=== PATIENT | male | born 1970 | race Caucasian/White ===

== ENCOUNTER → 2017-05-26 13:47 | Outpatient (CLI) | payer BC, SELFPAY | PROVIDERS: Family Provider Family Medicine; PCP Family Medicine; Visit Provider Family Medicine | DX: Z71.3 Dietary counseling and surveillance (principal); E11.9 Type 2 diabetes mellitus without complications | CPT/HCPCS: 97802; G0108 ==

== ENCOUNTER → 2019-05-17 14:41 | Outpatient (CLI) | payer BC, SELFPAY ==
--- NOTE | 2019-05-17 15:01 | XR_ITS ---
PROCEDURE: XR FOOT WT BEARING LT 3V CLINICAL INDICATION: pain COMPARISON: No exams were available for comparison FINDINGS: No fracture or dislocation. No lytic or blastic change. There is normal mineralization. The joint spaces are well-preserved. No significant degenerative/arthritic changes. No erosive changes evident. Other findings:Borderline pes planus IMPRESSION: Borderline pes planus otherwise negative Dictated by: Ming Davenport MD 05/17/2019 16:56 Electronically signed by Ming Davenport MD in [place] 05/17/2019 16:56
--- NOTE | 2019-05-17 15:01 | XR_ITS ---
PROCEDURE: XR FOOT WT BEARING RT 3V CLINICAL INDICATION: pain COMPARISON: No exams were available for comparison FINDINGS: No fracture or dislocation. No lytic or blastic change. There is normal mineralization. There are degenerative changes at the ankle joint with bony hypertrophy and decrease in the joint space at the anterior tibiotalar joint. There is mild pes planus. Other findings:None. IMPRESSION: Mild pes planus with degenerative changes at the ankle joint Dictated by: Ming Davenport MD 05/17/2019 16:55 Electronically signed by Ming Davenport MD in [place] 05/17/2019 16:55
== END ==
PROVIDERS: PCP Family Medicine; Referring Provider Podiatrist; Visit Provider Podiatrist
DX: M79.672 Pain in left foot (principal); M79.671 Pain in right foot
CPT/HCPCS: 73630

== ENCOUNTER → 2019-08-09 15:17 | Outpatient (CLI) | payer BC, SELFPAY ==
--- NOTE | 2019-08-09 15:25 | US_ITS ---
APPROVED REPORT Exam Type: Lower Extremity Segmental Pressures Blue Line Hanger: Swpana Ragsdale RDCS Indications Rest Pain: Numbness/Tingling Risk Factors Diabetes Pressures/Indices Right Indices Left Indices Brachial 130.00 mmHg Brachial 116.00 mmHg Low Thigh 137.00 mmHg 1.05 Low Thigh 133.00 mmHg 1.02 Calf 161.00 mmHg 1.24 Calf 147.00 mmHg 1.13 Ankle(PT) 167.00 mmHg 1.28 Ankle(PT) 152.00 mmHg 1.17 Ankle(DP) 166.00 mmHg 1.28 Ankle(DP) 151.00 mmHg 1.16 Digit 129.00 mmHg 0.99 Digit 129.00 mmHg 0.99 Findings R ANNA 1.3 L ANNA 1.2 R TBI 1.0 L TBI 1.0 NORMAL PULSES AND WAVEFORMS Conclusion Normal appearing resting noninvasive lower extremity arterial study. Electronically signed by : Ming Davenport MD 08/09/2019 18:27:44
== END ==
PROVIDERS: PCP Family Medicine; Visit Provider Nurse Practitioner
DX: R09.89 Other specified symptoms and signs involving the circulatory and respiratory systems (principal); R20.8 Other disturbances of skin sensation; R68.89 Other general symptoms and signs
CPT/HCPCS: 93923

== ENCOUNTER 2019-08-14 16:00 | Outpatient (RCR) | payer BC, SELFPAY ==
--- NOTE | 2019-06-11 09:51 | HMH.PTOPEV ---
PT Outpatient Evaluation Rehab PT Outpatient Evaluation Start: 06/11/19 08:07 Freq: Status: Active Protocol: Document 06/11/19 08:08 ANAHI (Rec: 06/11/19 09:50 ANAHI [id number]) Electronically Signed By Jacob Zheng, PT 06/11/19 08:08 Outpatient Therapy Subjective History Subjective History Pt reports h/o chronic R plantar fasciitis beginning in . Pt reports extreme R foot/heel pain with prolonged standing while he was working at [employer] (off until d/t pandemic). Pt reports injection in , 'didn't help at all', however, reports injections in R heel w/Dr. Bales (3wks ago , and last ) have ' helped a lot, however, I'm not sure how its gonna to do once I have to go back to work'. Chief Complaint Pain,Stiff Symptom Type Ache,Sharp,Dull Symptoms Relieved By Rest/Positioning,OTC Meds, Prescription Meds Symptoms Aggravated By Standing,Walking Prior Functional Limitations Standing,Walking Current Functional Limitations Standing,Walking Symptom Description Constant but Variable Level of pain today (0-10) 3 Pain scale - at its best (0-10) 2 Pain scale - at its worst (0-10) 8 Ankle/Foot Eval Gait Observation General Gait Pattern Observation Antalgic Gait,Decrease Weight Bear (R) Palpation Tenderness right Ankle/Foot Palpation Findings Tenderness Ankle/Foot Palpation Overall Comment 2-3/4 medial calcaneal PF insertion ROM Ankle/Foot Dorsiflexion w/Knee Extended 0-10 Active Range Motion (degrees) Ankle/Foot Plantar Flexion Active Range 0-50 of Motion (degrees) Ankle/Foot Eversion Active Range of 0-15 Motion (degrees) Ankle/Foot Inversion Active Range of 0-35 Motion (degrees) MMT Ankle Dorsiflexion Strength Grade 4 Good Ankle Plantarflexion Strength Grade 4 Good Foot Eversion Strength Grade 4 Good Foot Inversion Strength Grade 4 Good Outpatient Therapy Assessment Impairments Problems/Impairmments Palpation Tenderness,Impaired Range of Motion,Impaired Strength,Impaired Gait Pattern ,Impaired Walking,Impaired Standing,Impaired Work Activities,Subjective C/O Pain
--- NOTE | 2019-07-24 15:51 | HMH.RHREAS ---
Rehab Reassessment Rehab OP Re-assessment Start: 07/24/19 15:45 Freq: Status: Active Protocol: Document 07/24/19 15:45 ANAHI (Rec: 07/24/19 15:51 ANAHI [id number]) Electronically Signed By Jacob Zheng, PT 07/24/19 15:45 Rehab Re-assessment Subjective Subjective PT REPORTS 0-2/10 R LE/FOOT PAIN ON VAS W/ACTIVITY, AND FEELS 80-85% BETTER OVERALL SINCE I EVAL Objective Objective Notes AROM: L ANKLE DF 0-12, PF 0-50 , INV 0-40, EVR 0-20 MMT: L ANKLE DF 5/5, PF 5/5, INV 4-4+/5, EVR 4/5 TTP: COMMON PERONEAL INSERTION 1-2/4 Assessment Progress Assessment Progressing as Expected Assessment Notes PT W/MARKED IMPROVEMENT OVERALL FOLLOWING TREATMENT OF PERONEAL NN IMPINGEMENT Patient goals met STG'S 09/03 LTG'S 06/05 Goals Not Met LTG'S 06/05 Plan Plan PT TO CONT. W/SKILLED P.T. TO MAKE FURTHER IMPROVEMENTS IN TTP, AROM, AND STRENGTH TO ALLOW FOR OPTIMAL FUNCTION Frequency of Therapy 2-3X/WK Duration of therapy 3-4 WEEKS Time and Billing Re-Eval Time 15 Re-Eval Billing Units 1 PHYSICIAN CERTIFICATION: I certify the specified therapy services for Douglas Harrison are required, authorized, and reviewed every 30 days.
== END 2019-08-14 16:05 | disposition home or self-care (01) ==
LOC: PT 16:00
PROVIDERS: PCP Family Medicine; Visit Provider Podiatrist
DX: M72.2 Plantar fascial fibromatosis (principal)
CPT/HCPCS: 20560; 97010; 97014; 97033; 97035; 97110; 97140; 97163; 97164; G0283

== ENCOUNTER → 2019-10-04 16:53 | Outpatient (CLI) | payer BC, SELFPAY ==
[2019-10-04 18:02] LABS: Erythrocyte Sedimentation Rate 15 mm/hr (0-15)
[2019-10-04 20:19] LABS: Chloride 101 mmol/L (98-107); Sodium 139 mmol/L (136-145)
[2019-10-04 20:20] LABS: Potassium 4.8 mmoL/L (3.5-5.1)
[2019-10-04 20:22] LABS: Alanine Aminotransferase 38 U/L (12-78); Albumin Level 4.4 g/dl (3.5-5.0); Albumin/Globulin Ratio 1.7 (1.1-1.8); Alkaline Phosphatase 91 U/L (38-126); Anion Gap 13.8 mEq/L (5-15); Aspartate Amino Transferase 27 U/L (17-59); Bilirubin,Total 0.5 mg/dl (0.2-1.3); Blood Urea Nitrogen 23 mg/dl (9-20); Carbon Dioxide 29 mmol/L (22.0-30.0); Cholesterol 222 mg/dl (140-200); Estimated Glomerular Filt Rate 71 ml/min (>60); GFR (African American) 86 ML/MIN (>60); Globulin 2.6 g/dL (1.3-3.2); Triglycerides 149 mg/dl (30-150); VLDL Cholesterol 30 mg/dL (0-40)
[2019-10-04 20:23] LABS: Calcium 9.5 mg/dl (8.4-10.2); Chol/HDL Ratio 7.2 (1-3.5); Glucose 124 mg/dl (74-100); HDL Cholesterol 31 mg/dl (40-60)
[2019-10-04 20:26] LABS: C-Reactive Protein 1.7 mg/L (0-4)
[2019-10-04 20:52] LABS: Thyroid Stimulating Hormone 1.81 uIU/mL (0.465-4.68)
[2019-10-04 22:40] LABS: Creatinine,Urine Random 182 mg/dL (Not Estab.)
[2019-10-06 13:06] LABS: Folate 6.4 ng/mL (>3.0); Vitamin B12 405 pg/mL (232-1245)
[2019-10-09 09:36] LABS: 1,25 Dihydroxy Vitamin D 47 pg/mL (.); 1,25-Dihydroxy, Vitamin D-2 <10 pg/mL (.); 1,25-Dihydroxy, Vitamin D-3 46 pg/mL (.)
== END ==
PROVIDERS: PCP Family Medicine; Visit Provider Podiatrist
DX: M79.672 Pain in left foot (principal); R20.0 Anesthesia of skin; R20.2 Paresthesia of skin
CPT/HCPCS: 36415; 80053; 80061; 82043; 82570; 82607; 82652; 82746; 83036; 84443; 85651; 86140

== ENCOUNTER → 2020-02-11 09:47 | Outpatient (CLI) | payer BC, SELFPAY ==
--- NOTE | 2020-02-11 09:49 | FL_ITS ---
PROCEDURE: FL UPPER GI SMALL BOWEL CLINICAL INDICATION: GASTROESOPHAGEAL REFLUX DISEAS W/ ESOPHAGITIS COMPARISON: No exams were available for comparison TECHNIQUE: FLUOROSCOPY TIME : Fluoroscopy time: 2 minutes and 15 seconds FINDINGS: The esophagus, stomach, and duodenum have an unremarkable appearance.There is a small sliding hiatal hernia. No ulcer or mass evident. No mucosal abnormalities apparent. There is normal peristalsis. The duodenal C-loop is nondisplaced. A administrative support associate exam for the small-bowel series is unremarkable. The small bowel has an unremarkable appearance. No obstruction mass or other significant anomaly. Terminal ileum has an unremarkable appearance. IMPRESSION: Small sliding hiatal hernia otherwise negative upper GI with small-bowel follow-through Dictated by: Ming Davenport MD 02/11/2020 16:41 Ming Davenport MD in [place] 02/11/2020 16:41
== END ==
PROVIDERS: PCP Family Medicine; Visit Provider Physician Assistant
DX: K21.00 Gastro-esophageal reflux disease with esophagitis, without bleeding (principal)
CPT/HCPCS: 74246; 74248

== ENCOUNTER → 2020-08-27 14:46 | Outpatient (CLI) | payer BC, SELFPAY ==
[2020-08-27 14:51] LABS: Adenovirus F 40/41, stool Not Detected (NotDetected); Astrovirus Not Detected (NotDetected); Campylobacter Not Detected (NotDetected); Clostridium Difficile A/B, PCR Not Detected (NotDetected); Cryptosporidium Not Detected (NotDetected); Cyclospora Cayetanesis Not Detected (NotDetected); Entamoeba histolytica Not Detected (NotDetected); Enteroaggregative E coli Not Detected (NotDetected); Enteropathogenic E coli Not Detected (NotDetected); Enterotoxigenic E coli Not Detected (NotDetected); Giardia lamblia Not Detected (NotDetected); Norovirus Not Detected (NotDetected); Plesimonas Shigalloides, PCR Not Detected (NotDetected); Rotavirus A Not Detected (NotDetected); Salmonella, PCR Not Detected (NotDetected); Sapovirus Not Detected (NotDetected); Shiga-like toxin E coli Not Detected (NotDetected); Shigella Enterovasive E coli Not Detected (NotDetected); Vibrio Cholerae Not Detected (NotDetected); Vibrio, PCR Not Detected (NotDetected); Yersinia Entercolitica, PCR Not Detected (NotDetected)
== END ==
PROVIDERS: Visit Provider Family Medicine
DX: K58.0 Irritable bowel syndrome with diarrhea (principal)
CPT/HCPCS: 87507

== ENCOUNTER → 2020-11-24 09:45 | Outpatient (CLI) | payer BC, SELFPAY ==
--- NOTE | 2020-11-24 09:50 | NM_ITS ---
PROCEDURE: NM GASTRIC EMPTYING STUDY CLINICAL INDICATION: FECAL URGENCY, DIARRHEA, BLOATING SYMPTOMS COMPARISON: No exams were available for comparison TECHNIQUE: Dose 0.55 mCi technetium sulfur colloid with radial labeled meal FINDINGS: The 1/2 emptying time is 56 minutes within normal limits. 6.44 percent of the gastric contents was retained 4 hours. Images submitted shows no evidence of GE reflux. IMPRESSION: Normal gastric emptying Dictated by: Ming Davenport MD 11/24/2020 15:02 Ming Davenport MD in [place] 11/24/2020 15:02
== END ==
PROVIDERS: PCP Family Medicine; Visit Provider Nurse Practitioner Family
DX: R19.7 Diarrhea, unspecified (principal); R14.0 Abdominal distension (gaseous); R15.2 Fecal urgency; R11.2 Nausea with vomiting, unspecified
CPT/HCPCS: 78264; A9541

== ENCOUNTER → 2021-02-24 11:57 | Outpatient (CLI) | payer BC, SELFPAY ==
[2021-02-24 13:40] LABS: Chloride 101 mmol/L (98-107)
[2021-02-24 13:41] LABS: Potassium 4.8 mmoL/L (3.5-5.1); Sodium 138 mmol/L (136-145)
[2021-02-24 13:43] LABS: Alanine Aminotransferase 38 U/L (12-78); Alkaline Phosphatase 111 U/L (38-126); Aspartate Amino Transferase 27 U/L (17-59); Bilirubin,Total 0.7 mg/dl (0.2-1.3); Blood Urea Nitrogen 18 mg/dl (9-20); Estimated Glomerular Filt Rate 89 ml/min (>60); GFR (African American) 108 ML/MIN (>60)
[2021-02-24 13:44] LABS: Albumin Level 4.4 g/dl (3.5-5.0); Albumin/Globulin Ratio 1.6 (1.1-1.8); Anion Gap 14.8 mEq/L (5-15); Calcium 9.2 mg/dl (8.4-10.2); Carbon Dioxide 27 mmol/L (22.0-30.0); Chol/HDL Ratio 7.7 (1-3.5); Cholesterol 185 mg/dl (140-200); Globulin 2.7 g/dL (1.3-3.2); Glucose 296 mg/dl (74-100); HDL Cholesterol 24 mg/dl (40-60); Total Protein,Serum 7.1 g/dl (6.3-8.2); Triglycerides 283 mg/dl (30-150); VLDL Cholesterol 57 mg/dL (0-40)
[2021-02-24 13:55] LABS: Direct LDL Cholesterol 107.51 mg/dL (100-129)
[2021-02-24 14:15] LABS: Hemoglobin A1C 9.3 % (4.0-6.0)
== END ==
PROVIDERS: Visit Provider Family Medicine
DX: E11.9 Type 2 diabetes mellitus without complications (principal); E78.5 Hyperlipidemia, unspecified; Z12.5 Encounter for screening for malignant neoplasm of prostate
CPT/HCPCS: 36415; 80053; 80061; 83036

== ENCOUNTER 2021-05-12 17:42 | Emergency (ER) | payer BC, SELFPAY ==
[2021-05-12] VITALS (11 sets, daily range): BP systolic 114–142; BP diastolic 68–93; PULSE 90–118; RESP 7–18; TEMP 36.7; O2SAT 95–99; BMI 27.6
--- NOTE | 2021-05-12 17:41 | ECG_ITS ---
APPROVED REPORT Exam: Resting ECG HR:121 bpm ECG Measurements Heart Rate 121 AXES OR 168 P 151 QRSd 89 QRS 73 QT 316 T 48 QTc 388 Conclusion SINUS TACHYCARDIA ABNORMAL RHYTHM ECG UNCONFIRMED REPORT Electronically signed by : Eduardo Palafox MD 05/13/2021 07:41:20
--- NOTE | 2021-05-12 18:33 | XR_ITS ---
PROCEDURE INFORMATION: Exam: XR Chest Exam date and time: 05/12/2021 6:33 PM Age: 51 years old Clinical indication: Pain; Chest pressure; Additional info: Cp TECHNIQUE: Imaging protocol: XR of the chest. Views: 1 view. COMPARISON: NM GASTRIC EMPTYING STUDY 11/24/2020 10:08 AM FINDINGS: Lungs: Unremarkable. No consolidation. Pleural spaces: Unremarkable. No pleural effusion. No pneumothorax. Heart/Mediastinum: Unremarkable. No cardiomegaly. Bones/joints: Unremarkable. IMPRESSION: No acute findings.
--- NOTE | 2021-05-12 18:33 | HMH.EDCP ---
ED Disposition Condition on Discharge: Good - Critical Care Critical Care Time: No <Preston Riley - Last Filed: 05/12/21 19:48> <Douglas Estrella - Last Filed: 05/12/21 22:17> Clinical Impression: Chest pressure Chest pain Qualifiers: Chest pain type: precordial pain Qualified Code(s): R07.2 - Precordial pain Disposition: Home, Self-Care Instructions: DI for Chest Pain Additional Instructions: please see card in am Referrals: Parth Allen MD [Primary Care Provider] - Attestation: On 05/12/21, the high probability of a clinically significant, sudden or life threatening deterioration of the following system(s) required my full and direct attention, intervention and personal management. The time I documented below is in addition to time spent performing reported procedures but includes the following listed in this critical care notation. Medical Decision Making - Medical Records Medical records reviewed: Yes: I reviewed the patient's medical records. - Hemant Inquiry Pt receiving controlled substance: No - Lab Data Result diagrams: 05/12/21 17:43 05/12/21 17:43 <RosemaryJohnston - Last Filed: 05/12/21 19:48> - Lab Data Lab results reviewed: Yes: I reviewed the patient's lab results. Result diagrams: 05/12/21 17:43 05/12/21 17:43 - Radiology Data #1 Image(s): Chest Image Reviewed: Yes I have reviewed radiologist's interpretation Preliminary Findings: Normal/NAD <Douglas Estrella - Last Filed: 05/12/21 22:17> Vital Signs: 05/12/21 17:45 05/12/21 18:30 05/12/21 19:00 Temperature 98.1 F Temperature Source Oral Pulse Rate 112 H 102 H Pulse Rate [Left Radial] 118 H Respiratory Rate 7 L 16 Blood Pressure 126/89 142/68 H Blood Pressure [Right Arm] 142/93 H Blood Pressure Mean 96 96 Blood Pressure Mean [Right Arm] 109 02 Sat by Pulse Oximetry 99 96 05/12/21 19:30 05/12/21 20:00 05/12/21 20:30 Temperature Temperature Source Pulse Rate 111 H 102 H 103 H Pulse Rate [Left Radial] Respiratory Rate 18 Blood Pressure 122/89 122/89 121/87 Blood Pressure [Right Arm] Blood Pressure Mean 94 97 96 Blood Pressure Mean [Right Arm] 02 Sat by Pulse Oximetry 96 05/12/21 20:51 Temperature Temperature Source Pulse Rate 108 H Pulse Rate [Left Radial] Respiratory Rate Blood Pressure 114/88 Blood Pressure [Right Arm] Blood Pressure Mean 95 Blood Pressure Mean [Right Arm] 02 Sat by Pulse Oximetry 96 - Lab Data Lab Results 05/12/21 17:43: WBC 10.1, RBC 5.11, Hgb 15.8, Hct 49.0, MCV 95.8 H, MCH 31.0, MCHC 32.3, RDW 13.1, Plt Count 389, MPV 9.0, Neut % (Auto) 76.0, Lymph % (Auto) 16.9, Hand % (Auto) 4.8, Eos % (Auto) 0.7, Baso % (Auto) 1.7, Neut # (Auto) 7.7, Lymph # (Auto) 1.7, Hand # (Auto) 0.5, Eos # (Auto) 0.1, Baso # (Auto) 0.2 05/12/21 17:43: D-Dimer 0.50 05/12/21 17:43: Sodium 138, Potassium 4.2, Chloride 101, Carbon Dioxide 28, Anion Gap 13.2, BUN 20, Creatinine 1.10, Estimated GFR 71, Est GFR ( Amer) 85, Glucose 368 H, Calcium 9.0, Total Bilirubin 0.9, AST 28, ALT 29, Alkaline Phosphatase 112, Troponin I < 0.01, Total Protein 7.4, Albumin 4.4, Globulin 3.0, Albumin/Globulin Ratio 1.5 05/12/21 20:45: Troponin I < 0.01 Orders (Tests/Meds): ED MEDICATIONS Discontinued Medications Generic Name Dose Route Start Last Admin Trade Name Freq PRN Reason Stop Dose Admin Aspirin 324 mg 05/12/21 18:32 05/12/21 19:02 Aspirin 81mg Chewable Tablet PO 05/12/21 18:33 324 mg ONCE ONE Administration ORDERS Category Date Time Status Troponin I Q3H Lab 05/13/21 00:45 Ordered - ECG Data Tracing #1 ekg by ny sinus 121, qrs narrow, no st elev (Preston Riley) Medical Decision Narrative: stable labs and exam and see card for follow up and chest pressure resolved but has risk factors and asked to see card in am (Douglas Estrella) Chest Pain HPI - General Source of Informati
[2021-05-12 18:44] LABS: Basophils # 0.2 K/mm3 (0-0.2); Basophils % 1.7 % (0.1-2.0); Eosinophils # 0.1 K/mm3 (0.0-0.4); Eosinophils % 0.7 % (0.1-12.0); Hemoglobin 15.8 g/dL (14.1-18.0); Lymphocytes # 1.7 K/mm3 (0.7-4.5); Lymphocytes % 16.9 % (10-50); Mean Corpuscular HGB Conc 32.3 g/dL (31.8-35.4); Mean Corpuscular Volume 95.8 fl (80-94); Monocytes # 0.5 K/mm3 (0.1-1.0); Monocytes % 4.8 % (1.7-9.3); Neutrophils # 7.7 K/mm3 (1.8-7.8); Platelet Count 389 K/mm3 (142-424); Red Blood Count 5.11 M/mm3 (4.60-6.20); Red Cell Distribution Width 13.1 % (11.5-17.5); White Blood Count 10.1 K/mm3 (4.8-10.8)
[2021-05-12 18:49] LABS: Alanine Aminotransferase 29 U/L (12-78); Albumin Level 4.4 g/dl (3.5-5.0); Albumin/Globulin Ratio 1.5 (1.1-1.8); Alkaline Phosphatase 112 U/L (38-126); Anion Gap 13.2 mEq/L (5-15); Aspartate Amino Transferase 28 U/L (17-59); Bilirubin,Total 0.9 mg/dl (0.2-1.3); Blood Urea Nitrogen 20 mg/dl (9-20); Carbon Dioxide 28 mmol/L (22.0-30.0); Chloride 101 mmol/L (98-107); Estimated Glomerular Filt Rate 71 ml/min (>60); GFR (African American) 85 ML/MIN (>60); Glucose 368 mg/dl (74-100); Potassium 4.2 mmoL/L (3.5-5.1); Sodium 138 mmol/L (136-145); Total Protein,Serum 7.4 g/dl (6.3-8.2)
[2021-05-12 19:06] LABS: Troponin I < 0.01 ng/ml (0.00-0.034)
--- NOTE | 2021-05-12 20:53 | PC.NURSE ---
NO ACUTE DISTRESS NOTED. LABS DRAWN. WCM. PT UPDATED WITH POC.
[2021-05-12 22:03] LABS: Troponin I < 0.01 ng/ml (0.00-0.034)
== END 2021-05-12 22:21 | disposition home or self-care (01) ==
PROVIDERS: Emergency Provider Emergency Medicine; PCP Family Medicine
DX: R07.2 Precordial pain (principal); R94.31 Abnormal electrocardiogram [ECG] [EKG]; R94.39 Abnormal result of other cardiovascular function study; I10 Essential (primary) hypertension; I20.9 Angina pectoris, unspecified; E78.5 Hyperlipidemia, unspecified; E11.9 Type 2 diabetes mellitus without complications; K21.9 Gastro-esophageal reflux disease without esophagitis; R05.9 Cough, unspecified; Z88.0 Allergy status to penicillin; Z82.49 Family history of ischemic heart disease and other diseases of the circulatory system; Z80.9 Family history of malignant neoplasm, unspecified; Z83.3 Family history of diabetes mellitus; Z82.5 Family history of asthma and other chronic lower respiratory diseases; Z83.438 Family history of other disorder of lipoprotein metabolism and other lipidemia
CPT/HCPCS: 71045; 80053; 84484; 85025; 85378; 93005; 99285

== ENCOUNTER → 2021-05-18 14:21 | Outpatient (CLI) | payer BC, SELFPAY ==
--- NOTE | 2021-05-18 14:30 | US_ITS ---
FINAL REPORT CLINICAL HISTORY: choking-- tachycardia FINDINGS: THYROID ULTRASOUND Sonographic images of the thyroid was obtained. The right lobe of the thyroid measures 4.3 x 1.9 x 1.8 cm. The left lobe of the thyroid measures 3.9 x 1.9 x 1.4 cm. The isthmus measures 4 mm. IMPRESSION: Unremarkable thyroid evaluation Reviewed, Interpreted and Dictated by Johny Berger MD Transcribed by Nahed Blake Authenticated by Johny Berger MD on 05/18/2021 04:27:[address] [facility]
[2021-05-18 15:48] LABS: Basophils # 0.1 K/mm3 (0-0.2); Eosinophils # 0.1 K/mm3 (0.0-0.4); Eosinophils % 1.3 % (0.1-12.0); Hematocrit 42.2 % (42.0-52.0); Hemoglobin 13.9 g/dL (14.1-18.0); Mean Corpuscular HGB Conc 32.8 g/dL (31.8-35.4); Mean Corpuscular Hemoglobin 31.2 pg (27.0-31.2); Mean Corpuscular Volume 95.1 fl (80-94); Mean Platelet Volume 8.7 fl (7.4-10.4); Monocytes # 0.4 K/mm3 (0.1-1.0); Monocytes % 6.1 % (1.7-9.3); Neutrophils # 4.1 K/mm3 (1.8-7.8); Neutrophils % 61.5 % (37.0-80.0); Platelet Count 305 K/mm3 (142-424); Red Blood Count 4.44 M/mm3 (4.60-6.20); Red Cell Distribution Width 12.9 % (11.5-17.5); White Blood Count 6.6 K/mm3 (4.8-10.8)
[2021-05-18 16:26] LABS: Chloride 103 mmol/L (98-107); Potassium 4.7 mmoL/L (3.5-5.1); Sodium 138 mmol/L (136-145)
[2021-05-18 16:28] LABS: Bilirubin,Unconjugated 0.2 mg/dL (0.0-1.1); Blood Urea Nitrogen 13 mg/dl (9-20); Estimated Glomerular Filt Rate 79 ml/min (>60); GFR (African American) 95 ML/MIN (>60)
[2021-05-18 16:29] LABS: Alanine Aminotransferase 24 U/L (12-78); Alkaline Phosphatase 107 U/L (38-126); Anion Gap 8.7 mEq/L (5-15); Aspartate Amino Transferase 20 U/L (17-59); Bilirubin,Direct 0.2 mg/dl (0.0-0.4); Bilirubin,Indirect 0.3 mg/dL (0.0-0.9); Bilirubin,Total 0.5 mg/dl (0.2-1.3); Calcium 8.5 mg/dl (8.4-10.2); Carbon Dioxide 31 mmol/L (22.0-30.0); Chol/HDL Ratio 5.2 (1-3.5); Cholesterol 125 mg/dl (140-200); Glucose 262 mg/dl (74-100); HDL Cholesterol 24 mg/dl (40-60); Total Protein,Serum 6.5 g/dl (6.3-8.2); Triglycerides 204 mg/dl (30-150); VLDL Cholesterol 41 mg/dL (0-40)
[2021-05-18 16:40] LABS: Direct LDL Cholesterol 74.47 mg/dL (100-129)
[2021-05-18 16:43] LABS: Free T4 (Free Thyroxine) 0.93 ng/dl (0.78-2.19)
[2021-05-18 16:58] LABS: Thyroid Stimulating Hormone 1.91 uIU/mL (0.465-4.68)
== END ==
PROVIDERS: PCP Family Medicine; Visit Provider Physician Assistant
DX: R07.2 Precordial pain (principal); R00.0 Tachycardia, unspecified; R94.31 Abnormal electrocardiogram [ECG] [EKG]; T17.308A Unspecified foreign body in larynx causing other injury, initial encounter; U07.1 COVID-19; E11.42 Type 2 diabetes mellitus with diabetic polyneuropathy; Z79.84 Long term (current) use of oral hypoglycemic drugs
CPT/HCPCS: 36415; 76536; 80048; 80061; 80076; 84439; 84443; 85025

== ENCOUNTER → 2021-05-21 06:09 | Outpatient (CLI) | payer BC, SELFPAY ==
--- NOTE | 2021-05-21 06:10 | CA_ITS ---
APPROVED REPORT EXAM: Comprehensive 2D, Doppler, and color-flow Echocardiogram Road Design Engineer: Adrienne Romero RVT Ht: 6 ft 2 in Wt: 221lbs BSA: 2.27 BP: 113/74 mmHg Indications: CP,ABN EKG,TACHYCARDIA,SOA,DM,HLD,HX COVID 05/19 2D Dimensions LVOT 2.09 cm (M/F) 1.5-2.5 LA Volume 30.90 mL LA Volume Index 13.67 mL/m2 (M/F) 16-34 M-Mode Dimensions RVDd 2.77 cm (0.9-2.6) LA Diam 4.01 cm (1.9-4.0) LVDd 4.92 cm (3.5-5.7) Ao Diam 3.14 cm (2.0-3.7) LVDs 3.17 cm (3.5-5.7) IVSd 0.54 cm (0.6-1.1) PWd 0.72 cm (0.6-1.1) EF (Teich) 64.90% FS 35.60% EDV (Teich) 113.90 mL TAPSE 1.78 (<1.7) ESV (Teich) 40.00 mL LV Diastology E Decel Time 103.00 (160-240 msec) E/A Ratio 0.6 MED E' 3.90 (< 7 cm/sec) E'/MED E' Ratio 13.38 (>14) LAT E' 10.00 (<10 cm/sec) E/LAT E' Ratio 5.22 (>14) Aortic Valve AO Peak GR. 3.50 mmHg Mitral Valve MV E Max Diaz. 52.00 (40-130 cm/s) MV A Velocity 82.00 (40-130 cm/s) E/A Ratio 0.63 MV Decel. Time 103.00 (160-240 ms) MV PHT 30.00 ms Pulmonary Valve PV Peak Velocity 75.00 (50-150 cm/s) Left Ventricle Left atrium is mildly enlarged, left ventricle is normal size, mild concentric left ventricular hypertrophy, estimated ejection fraction 55% with no regional wall motion abnormality, grade 1 diastolic dysfunction seen without tissue Doppler evidence of raise left atrial pressure. Right Ventricle Right atrium and right ventricle are normal size and contractility. Aortic Valve Aortic valve is minimally thickened and fibrosed, there is no aortic stenosis or aortic insufficiency. Mitral Valve Mitral valve grossly normal, there is trace mitral regurgitation. Tricuspid Valve Tricuspid grossly normal, there is trace tricuspid regurgitation, tricuspid regurgitation jet velocity is inadequate for calculation of the right ventricular systolic pressure. Pulmonic Valve Pulmonic valve is poorly visualized. Great Vessels Aortic root is normal size. Inferior vena cava is poorly visualized. Pericardium No significant pericardial effusion noted. Conclusion 1. Mildly enlarged left atrium, normal left ventricular size, mild concentric left ventricular hypertrophy, visually estimated ejection fraction 55% with no regional wall motion abnormality, grade 1 diastolic dysfunction seen without tissue Doppler evidence of raise left atrial pressure. 2. Trace mitral and tricuspid regurgitation. 3. No significant pericardial effusion noted. 4. Inferior vena cava is poorly visualized. Electronically signed by : Heriberto Díaz MD 05/22/2021 14:10:21
--- NOTE | 2021-05-21 06:10 | CA_ITS ---
APPROVED REPORT Exam: Exercise Treadmill Technologist: Juanita Antony, Ht: 6 ft 2 in Wt: 221 lbs BSA: 2.27 m2 HR: 107 bpm BP: 116/82 mmHg Rhythm: SINUS TACH, CANNOT R/O OLD INFERIOR-POSTERIOR CT, T WAVE ABNS IN III AVF Medical History Medical History: Hyperlipidemia Medications: Pantoprazole,,,,, Glimepiride,,,,, RoSUVASTATIN,,,,, VoRtioxetine,,,,, Allergies: PENICILLIN Cardiac Risk Factors: Hyperlipidemia, Diabetes , FHX of CAD Stress Test Details Test: Mando, Exercise stress testing was performed using a modified Mando protocol. HR Resting HR: 110 bpm Max Heart Rate (APMHR): 169.124928 bpm Max HR Achieved: 170 bpm Target HR (85% APMHR): 143.963547 bpm % of APMHR: 100.59 Recovery HR: 116 bpm BP Resting BP: 117/82 mmHg Max BP: 146/60 mmHg Recovery BP: 127.0/82.0 mmHg ECG Resting ECG: SINUS TACH, CANNOT R/O OLD INFERIOR-POSTERIOR CT, T WAVE ABNS IN III AVF Clinical Exercise duration: 09:31 min Highest Stage Achieved: Exercise capacity: 10.1 METs Stress ECG Conclusion PT EXERCISED 9:31 ON MANDO PROTOCOL, GOING INTO STAGE 4. PT HAD NO CP. OCC FUSION BEAT. NORMAL ST RESPONSE TO EXERCISE. NORMAL GXT. MYOVIEW IMAGES REPORTED SEPARATELY. Test Summary REST . . . . . . . Standing REST . . . . . . . Sitting REST 06:45 0.0 0.0 110 . 117/ 82 . . Stage 1 01:00 10.0 1.7 116 . . . . Stage 1 02:00 10.0 1.7 123 . . . . Stage 1 03:00 10.0 1.7 124 . 140/ 76 . . Stage 2 01:00 12.0 2.5 130 . . . . Stage 2 02:00 12.0 2.5 133 . . . . Stage 2 03:00 12.0 2.5 138 . 146/ 60 . . Stage 3 01:00 14.0 3.4 144 . . . . Stage 3 02:00 14.0 3.4 151 . . . . Stage 3 03:00 14.0 3.4 156 . . . . Stage 4 00:31 16.0 4.2 162 . . . Stop exercise at 09:31 RECOVERY 01:00 0.0 0.0 152 . . . . RECOVERY 02:00 0.0 0.0 138 . . . . RECOVERY 03:00 0.0 0.0 127 . 125/ 76 . . RECOVERY 04:00 0.0 0.0 121 . 129/ 84 . . RECOVERY 05:00 0.0 0.0 119 . 127/ 82 . . RECOVERY 05:17 0.0 0.0 120 . 127/ 82 . . Electronically signed by : Heriberto Díaz MD 05/22/2021 11:51:32
--- NOTE | 2021-05-21 06:10 | NM_ITS ---
APPROVED REPORT Exam: Nuclear Stress Test Indication: chest pain..short of breath..fatigue Patient Location: Outpatient Stress Tech: Juanita Antony [place] Tech:Negar Brian EMMANUELLea RT(R)(N) Ht: 6 ft 2 in Wt: 220 lbs HR: 107 bpm BP: 116/82 mmHg BSA: 2.26 m2 BMI: 28.2 History: chest pain..short of breath..fatigue Procedure: Patient exercised on Keenan protocol 9:31 minutes and sec, resting heart rate 107 bpm, resting blood pressure 116/82 mmHg, with exercise maximum heart rate achived was 166 bpm which is 98 % of the maximum predicted heart rate and blood pressure was 146/60 mmHg. Test was stopped due to soa..fatigue. Patient denied any complaint of chest pain. Patient has good exercise capacity, achieved 10.1 METs of workload on treadmill, the blood pressure response to exercise was Adequate. Electrocardiogram Resting electrocardiogram shows sinus rhythm, with exercise there is less than 1.[address] segment depression noted from the baseline EKG. The EKG portion of the exercise Myoview is negative for ischemia. Cardiac Stress and Resting SPECT Images: Cardiac Stress and Resting SPECT images were obtained using technetium 99m Myoview 31.6 mCi stress and 10.40 mCi at rest. Gated SPECT for analysis of segmental wall motion and calculation of the ejection fraction also done. Cardiac stress and rest SPECT may show reversible ischemia involving the inferior and posterior basal wall, computer derived ejection fraction is 56% with no regional wall motion abnormality, right ventricle is normal size and contractility. Conclusion: 1. The EKG portion of the exercise Myoview is negative for ischemia, patient has good exercise capacity achieved 10.1 METs of workload on treadmill, the blood pressure response to exercise was adequate, there was no exercise-induced chest discomfort. 2. Scintigraphic evidence of reversible ischemia involving the inferior and posterior basal wall, computer derived ejection fraction of 56% with no regional wall motion abnormality, right ventricle is normal size and contractility. 3 . Abnormal exercise Myoview study. Electronically signed by : Heriberto Díaz MD 05/22/2021 11:54:49
== END ==
PROVIDERS: PCP Family Medicine; Visit Provider Physician Assistant
DX: R06.00 Dyspnea, unspecified (principal); R07.2 Precordial pain; R00.0 Tachycardia, unspecified; E11.42 Type 2 diabetes mellitus with diabetic polyneuropathy; R94.31 Abnormal electrocardiogram [ECG] [EKG]
CPT/HCPCS: 78452; 93017; 93306; A9502

== ENCOUNTER → 2021-05-28 15:58 | Outpatient (CLI) | payer BC, SELFPAY | PROVIDERS: Visit Provider Physician Assistant | DX: Z01.812 Encounter for preprocedural laboratory examination (principal); Z11.52 Encounter for screening for COVID-19; R06.00 Dyspnea, unspecified; I20.8 Other forms of angina pectoris; I10 Essential (primary) hypertension; E11.42 Type 2 diabetes mellitus with diabetic polyneuropathy; R94.31 Abnormal electrocardiogram [ECG] [EKG]; R94.39 Abnormal result of other cardiovascular function study; Z79.84 Long term (current) use of oral hypoglycemic drugs | CPT/HCPCS: C9803; U0003; U0005 ==

== ENCOUNTER 2021-05-29 08:40 | Day surgery (SDC) | payer BC, SELFPAY ==
[2021-05-29] VITALS (12 sets, daily range): BP systolic 104–165; BP diastolic 66–91; PULSE 61–86; RESP 18–20; O2SAT 91–98; BMI 28.8
--- NOTE | 2021-05-29 07:03 | IR_ITS ---
APPROVED REPORT Patient Location: Outpatient PROCEDURES Left heart catheterization Left ventriculogram Selective coronary angiogram INDICATION Abnormal Myoview with inferior ischemia Informed consent was obtained prior to the procedure. COMPLICATIONS None Estimated Blood Loss: Less than 10 mls TECHNIQUE One percent lidocaine used to anesthetize the right anterior aspect of the wrist. The right radial artery was accessed via the Seldinger technique. A 6 Sur[place]amese sheath was placed in the right radial artery. 2.5 mg of verapamil, 800 mcg of nitroglycerin, 1mg Lidocaine and 5000 U Heparin were given through the arterial sheath. The papa catheter was also used to perform left heart catheterization, left ventriculogram and selective coronary angiogram. At the end of the procedure the sheath was removed good hemostasis was achieved using Traclet band, patient was transferred to the postop holding area in stable condition. 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 Patient's Myoview demonstrated inferior wall ischemia. This is likely from diaphragm attenuation. Given the lack of anterior ischemia the myocardial bridge is likely clinically providing adequate medical management is implemented. Patient should do well with beta-blockers. The goal of his treatment is to limit heart rate and prolong diastole. Beta-blockers plus or minus verapamil or diltiazem will be beneficial 2. Continue risk factor modification Electronically signed by : Skip Montague MD 05/29/2021 10:20:55
== END 2021-05-29 13:34 | disposition home or self-care (01) ==
LOC: CATHLAB 08:45
PROVIDERS: PCP Family Medicine; Visit Provider Internal Medicine
DX: I25.118 Atherosclerotic heart disease of native coronary artery with other forms of angina pectoris (principal); E11.42 Type 2 diabetes mellitus with diabetic polyneuropathy; R06.00 Dyspnea, unspecified; R94.31 Abnormal electrocardiogram [ECG] [EKG]; R94.39 Abnormal result of other cardiovascular function study; K21.9 Gastro-esophageal reflux disease without esophagitis; E78.5 Hyperlipidemia, unspecified; Z86.16 Personal history of COVID-19
CPT/HCPCS: 93458; 99152; C1725; C1760; C1769; J1644; Q9967

== ENCOUNTER → 2021-07-18 10:23 | Outpatient (CLI) | payer BC, SELFPAY ==
[2021-07-18 11:21] LABS: Hemoglobin A1C 9.9 % (4.0-6.0)
[2021-07-18 11:32] LABS: Alanine Aminotransferase 23 U/L (12-78); Albumin Level 4.1 g/dl (3.5-5.0); Albumin/Globulin Ratio 1.6 (1.1-1.8); Alkaline Phosphatase 101 U/L (38-126); Anion Gap 11.3 mEq/L (5-15); Aspartate Amino Transferase 20 U/L (17-59); Bilirubin,Total 0.4 mg/dl (0.2-1.3); Blood Urea Nitrogen 14 mg/dl (9-20); Calcium 9.1 mg/dl (8.4-10.2); Carbon Dioxide 28 mmol/L (22.0-30.0); Chloride 102 mmol/L (98-107); Chol/HDL Ratio 5.4 (1-3.5); Cholesterol 140 mg/dl (140-200); Estimated Glomerular Filt Rate 89 ml/min (>60); GFR (African American) 108 ML/MIN (>60); Globulin 2.5 g/dL (1.3-3.2); Glucose 226 mg/dl (74-100); HDL Cholesterol 26 mg/dl (40-60); Potassium 4.3 mmoL/L (3.5-5.1); Sodium 137 mmol/L (136-145); Total Protein,Serum 6.6 g/dl (6.3-8.2); Triglycerides 134 mg/dl (30-150); VLDL Cholesterol 27 mg/dL (0-40)
[2021-07-18 11:43] LABS: Direct LDL Cholesterol 82.88 mg/dL (100-129)
[2021-07-18 12:01] LABS: Prostate Specific Ag Screen 0.5 ng/ml (0.0-4.0)
== END ==
PROVIDERS: PCP Family Medicine; Visit Provider Family Medicine
DX: E11.9 Type 2 diabetes mellitus without complications (principal); E78.5 Hyperlipidemia, unspecified; Z12.5 Encounter for screening for malignant neoplasm of prostate; Z79.84 Long term (current) use of oral hypoglycemic drugs
CPT/HCPCS: 36415; 80053; 80061; 83036; G0103

== ENCOUNTER → 2022-01-30 11:17 | Outpatient (CLI) | payer BC, SELFPAY ==
[2022-01-30 11:57] LABS: Chloride 101 mmol/L (98-107); Potassium 4.1 mmoL/L (3.5-5.1); Sodium 133 mmol/L (136-145)
[2022-01-30 11:59] LABS: Blood Urea Nitrogen 13 mg/dl (9-20); Estimated Glomerular Filt Rate 79 ml/min (>60); GFR (African American) 95 ML/MIN (>60)
[2022-01-30 12:00] LABS: Alanine Aminotransferase 32 U/L (12-78); Albumin Level 4.3 g/dl (3.5-5.0); Albumin/Globulin Ratio 1.7 (1.1-1.8); Alkaline Phosphatase 146 U/L (38-126); Anion Gap 8.1 mEq/L (5-15); Aspartate Amino Transferase 27 U/L (17-59); Bilirubin,Total 0.7 mg/dl (0.2-1.3); Calcium 9.5 mg/dl (8.4-10.2); Carbon Dioxide 28 mmol/L (22.0-30.0); Chol/HDL Ratio 7.6 (1-3.5); Cholesterol 189 mg/dl (140-200); Globulin 2.5 g/dL (1.3-3.2); Glucose 303 mg/dl (74-100); HDL Cholesterol 25 mg/dl (40-60); Total Protein,Serum 6.8 g/dl (6.3-8.2); Triglycerides 298 mg/dl (30-150); VLDL Cholesterol 60 mg/dL (0-40)
[2022-01-30 12:12] LABS: Direct LDL Cholesterol 97.95 mg/dL (100-129)
[2022-01-30 12:31] LABS: Hemoglobin A1C 13.1 % (4.0-6.0)
== END ==
PROVIDERS: PCP Family Medicine; Visit Provider Family Medicine
DX: E11.9 Type 2 diabetes mellitus without complications (principal); E78.5 Hyperlipidemia, unspecified; Z79.84 Long term (current) use of oral hypoglycemic drugs
CPT/HCPCS: 36415; 80053; 80061; 81001; 82043; 83036

== ENCOUNTER → 2022-02-09 14:51 | Outpatient (CLI) | payer BC, SELFPAY ==
[2022-02-09 16:04] VITALS: BMI 29.1
== END ==
PROVIDERS: PCP Family Medicine; Visit Provider Family Medicine
DX: E11.65 Type 2 diabetes mellitus with hyperglycemia (principal); Z71.3 Dietary counseling and surveillance
CPT/HCPCS: 97802

== ENCOUNTER 2022-04-17 12:45 | Emergency (ER) | payer BC, OTHER, SELFPAY ==
[2022-04-17 12:50] VITALS: BP 113/70; PULSE 76; RESP 20; TEMP 36.8; O2SAT 97; BMI 28.8
--- NOTE | 2022-04-17 13:29 | EXP.UTC ---
Discharge Plan Disposition Patient Disposition: Home, Self-Care Condition: Good Prescriptions Prescriptions: New cephalexin [cephalexin] 500 mg tablet 500 mg PO BID 7 Days Qty: 14 0RF fluticasone propionate [Flonase Allergy Relief] 50 mcg/actuation spray,suspension 1 spray intranasal DAILY Qty: 16 0RF Rx Instructions: administer into each nostril No Action glimepiride 2 mg tablet 2 mg PO DAILY Label Comments: TAKE 1 TABLET BY MOUTH ONCE DAILY rosuvastatin 20 mg tablet 20 mg PO HS pantoprazole 40 mg tablet,delayed release (DR/EC) 40 mg PO DAILY Trintellix 20 mg tablet 20 mg PO DAILY bisoprolol fumarate 10 mg tablet 10 mg PO DAILY Qty: 90 1RF Referrals Follow up/Referrals: Parth Allen MD [Primary Care Provider] - See instructions Activity Restrictions/Add. Instructions Additional Instructions/Restrictions: Start antibiotic as soon as possible and be sure to take as ordered for full length of time even though he should start feeling better in 24-48 hours. Tylenol or Motrin as needed for pain or fever Encourage fluids, water, Gatorade, Powerade, Pedialyte if infant/toddler/child Warm compresses often helps when placed over ear Return immediately for new or worsening symptoms no noticeable improvement in 48-72 hours and in 10-14 days to ensure the ears are return to baseline. Follow-up with primary care Clinical Impressions Clinical Impression: Otitis media Instructions Patient Instructions: Middle Ear Infection Discharge ED Provider: Ryne ([facility])Yenifer [facility] HPI General Stated complaint: Sore throat LT ear pain fever Mode of Arrival: Ambulatory Source of Information: Patient Limitations: No Limitations Time Seen by Provider: 04/17/22 13:29 Description of Symptoms (Recalled from Triage Doc. by RN): PATIENT C/O LEFT EAR PAIN AND SORE THROAT SINCE THIS MORNING HEENT Symptoms (Recalled from RN notes): Yes Resp Symptoms (Recalled from RN notes): No Skin Symptoms (Recalled from RN notes): No MS Symptoms (Recalled from RN notes): No Functional Status (Recalled from RN notes): WNL History of Present Illness Provider Complaint: 51 yr old male presents for left ear pain and sore throat for 2 days Related Data Home Medications Medication Instructions Recorded Confirmed glimepiride 2 mg tablet 2 mg PO DAILY Diabetes 05/13/21 06/22/21 pantoprazole 40 mg tablet,delayed 40 mg PO DAILY GERD 05/13/21 06/22/21 release rosuvastatin 20 mg tablet 20 mg PO HS Cholesterol 05/13/21 06/22/21 vortioxetine 20 mg tablet 20 mg PO DAILY 06/22/21 06/22/21 (Trintellix) Previous Rx's Medication Instructions Recorded bisoprolol fumarate 10 mg tablet 10 mg PO DAILY heart rate #90 tabs 01/27/22 cephalexin 500 mg tablet 500 mg PO BID 7 days #14 tabs 04/17/22 fluticasone propionate 50 1 spray intranasal DAILY #16 grams 04/17/22 mcg/actuation nasal spray,suspension (Flonase Allergy Relief) Allergies Allergy/AdvReac Type Severity Reaction Status Date / Time Penicillins Allergy Intermediate I-HIVES Verified 06/22/21 14:23 Worker's Comp Is this a Worker's Comp case?: No [facility] Disclaimer: The information contained in this section may have been updated after the patient was seen, as this information can be updated by other users. 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
[2022-04-17 13:33] VITALS: BP 113/70; PULSE 76; RESP 20; TEMP 36.8; O2SAT 97
== END 2022-04-17 13:42 | disposition home or self-care (01) ==
PROVIDERS: Emergency Provider Nurse Practitioner Family; PCP Family Medicine
DX: H66.90 Otitis media, unspecified, unspecified ear (principal)
CPT/HCPCS: 99212; 99213; G0463

== ENCOUNTER → 2022-05-22 09:03 | Outpatient (CLI) | payer BC, SELFPAY ==
[2022-05-22 10:07] LABS: Alanine Aminotransferase 23 U/L (12-78); Albumin Level 4.2 g/dl (3.5-5.0); Albumin/Globulin Ratio 1.8 (1.1-1.8); Alkaline Phosphatase 83 U/L (38-126); Anion Gap 8.5 mEq/L (5-15); Aspartate Amino Transferase 23 U/L (17-59); Bilirubin,Total 0.8 mg/dl (0.2-1.3); Blood Urea Nitrogen 17 mg/dl (9-20); Calcium 8.5 mg/dl (8.4-10.2); Carbon Dioxide 31 mmol/L (22.0-30.0); Chloride 102 mmol/L (98-107); Estimated Glomerular Filt Rate 78 ml/min (>60); GFR (African American) 95 ML/MIN (>60); Globulin 2.4 g/dL (1.3-3.2); Glucose 173 mg/dl (74-100); Potassium 4.5 mmoL/L (3.5-5.1); Sodium 137 mmol/L (136-145); Total Protein,Serum 6.6 g/dl (6.3-8.2)
[2022-05-22 10:12] LABS: Hemoglobin A1C 8.1 % (4.0-6.0)
[2022-05-23 08:00] LABS: Testosterone,Total 182 ng/dL (264-916)
== END ==
PROVIDERS: PCP Family Medicine; Visit Provider Family Medicine
DX: E11.65 Type 2 diabetes mellitus with hyperglycemia (principal); R53.83 Other fatigue; E29.1 Testicular hypofunction; Z79.84 Long term (current) use of oral hypoglycemic drugs
CPT/HCPCS: 36415; 80053; 83036; 84403

== ENCOUNTER 2022-08-04 14:09 | Emergency (ER) | payer BC, OTHER, SELFPAY ==
[2022-08-04 14:09] VITALS: BP 117/74; PULSE 71; RESP 16; TEMP 36.6; O2SAT 97; BMI 28.8
--- NOTE | 2022-08-04 14:32 | EXP.UTC ---
Discharge Plan Disposition Patient Disposition: Home, Self-Care Condition: Good Prescriptions Prescriptions: New ibuprofen [ibuprofen] 600 mg tablet 600 mg PO Q6HP PRN (Reason: Mild Pain) Qty: 30 0RF No Action glimepiride 2 mg tablet 2 mg PO DAILY Label Comments: TAKE 1 TABLET BY MOUTH ONCE DAILY rosuvastatin 20 mg tablet 20 mg PO HS pantoprazole 40 mg tablet,delayed release (DR/EC) 40 mg PO DAILY Touhiwot SoloStar U-300 Insulin 300 unit/mL (1.5 mL) insulin pen 36 unit SQ DAILY Mounjaro 2.5 mg/0.5 mL pen injector 2.5 mg SQ WEEKLY Trintellix 20 mg tablet 20 mg PO DAILY bisoprolol fumarate 10 mg tablet 10 mg PO DAILY Qty: 90 1RF Referrals Follow up/Referrals: Parth Allen MD [Primary Care Provider] - See instructions Flora Bales DPM [Staff Physician] - See instructions Activity Restrictions/Add. Instructions Additional Instructions/Restrictions: Rest the extremity, Elevate the extremity as tolerated while you are resting. Take ibuprofen for pain. I sent in a prescription to your pharmacy. Follow up with Dr. Bales (podiatry). I put in a referral but you need to call her office and schedule an appointment. Follow up with your regular doctor. GO TO THE ER FOR ANY WORSENING SYMPTOMS Clinical Impressions Clinical Impression: Foot pain, left Instructions Patient Instructions: DI for Foot Pain, How to Use a Walking Boot Discharge ED Provider: Kevin Mcmahan [facility] General Stated complaint: left foot pain/swelling, no accident Time Seen by Provider: 08/04/22 14:43 History of Present Illness Provider Complaint: He c/o left foot pain for the past 2 weeks. His pain is located in the ball of his foot. It is worse when he is walking and he pushes off with his toes. He denies any known injury. Related Data Home Medications Medication Instructions Recorded Confirmed glimepiride 2 mg tablet 2 mg PO DAILY Diabetes 05/13/21 06/22/22 pantoprazole 40 mg tablet,delayed 40 mg PO DAILY GERD 05/13/21 06/22/22 release rosuvastatin 20 mg tablet 20 mg PO HS Cholesterol 05/13/21 06/22/22 vortioxetine 20 mg tablet 20 mg PO DAILY 06/22/21 06/22/22 (Trintellix) insulin glargine U-300 conc 300 36 unit SQ DAILY 06/22/22 06/22/22 unit/mL (1.5 mL) subcutaneous pen (Toujeo SoloStar U-300 Insulin) tirzepatide 2.5 mg/0.5 mL 2.5 mg SQ WEEKLY 06/22/22 06/22/22 subcutaneous pen injector (Efraínungloriaro) Previous Rx's Medication Instructions Recorded bisoprolol fumarate 10 mg tablet 10 mg PO DAILY heart rate #90 tabs 01/27/22 ibuprofen 600 mg tablet 600 mg PO Q6HP PRN Mild Pain #30 08/04/22 tabs Allergies Allergy/AdvReac Type Severity Reaction Status Date / Time Penicillins Allergy Intermediate I-HIVES Verified 06/22/22 13:20 [facility] Disclaimer: The information contained in this section may have been updated after the patient was seen, as this information can be updated by other users. Medical History Abnormal cardiovascular stress test Abnormal electrocardiography Atypical angina Diabetes mellitus, type 2 Dyspnea Hyperlipidemia Hypertension Kidney stone Myocardial bridge Social History Smoking Status: Never smoker alcohol intake: never current occupational status: employed Travel in the last 8 weeks: Inside the [place] ROS Obtained: Yes All systems reviewed & no additional complaints except as documented Constitutional Constitutional: Denies chills and Denies fever(s) Eyes Eyes: Denies eye discharge ENT Ears, Nose, Mouth, and Throat: Denies dizziness, Denies otalgia and Denies sore throat Cardiovascular Cardiovascular: Denies chest pain Respiratory Respiratory: Denies shortness of breath, Denies chest congestion, Denies cough, Denies stridor and Denies wheezing Gastrointestinal Gastrointest
--- NOTE | 2022-08-04 14:41 | XR_ITS ---
FINAL REPORT CLINICAL HISTORY: left foot pain, no known injury FINDINGS: LEFT FOOT Three views demonstrate no acute fracture or dislocation. There is evidence of old avulsion injury of the medial malleolus. The joint spaces appear normal. No acute soft tissue abnormality is seen. IMPRESSION: No acute process. Reviewed, Interpreted and Dictated by Holger Marquez MD Transcribed by Victoria Gong Authenticated and . [facility]
[2022-08-04 16:03] VITALS: BP 117/74; PULSE 71; RESP 16; TEMP 36.6; O2SAT 97
== END 2022-08-04 16:04 | disposition home or self-care (01) ==
PROVIDERS: Emergency Provider Nurse Practitioner Family; PCP Family Medicine
DX: M79.672 Pain in left foot (principal); E11.9 Type 2 diabetes mellitus without complications; E78.5 Hyperlipidemia, unspecified; I10 Essential (primary) hypertension; Z79.4 Long term (current) use of insulin
CPT/HCPCS: 73630; 99212; 99214; G0463

== ENCOUNTER → 2022-08-23 08:46 | Outpatient (CLI) | payer BC, OTHER, SELFPAY ==
--- NOTE | 2022-08-23 08:56 | XR_ITS ---
FINAL REPORT CLINICAL HISTORY: left foot pain COMPARISON: 08/04/2022 FINDINGS: LEFT FOOT: Three views of the left foot were obtained. There is no acute fracture or dislocation. The joint spaces are intact. There is no soft tissue abnormality. IMPRESSION: No acute bony abnormality. Reviewed, Interpreted and Dictated by Umair Olson III, MD Transcribed by Carola Cabrera Authenticated and [facility]
== END ==
PROVIDERS: PCP Family Medicine; Visit Provider Podiatrist
DX: M79.672 Pain in left foot (principal); M84.375A Stress fracture, left foot, initial encounter for fracture
CPT/HCPCS: 73630

== ENCOUNTER → 2022-09-20 07:44 | Outpatient (CLI) | payer BC, OTHER, SELFPAY ==
--- NOTE | 2022-09-20 07:45 | MR_ITS ---
FINAL REPORT TECHNIQUE: Multiplanar MR of the foot without gadolinium enhancement. CLINICAL HISTORY: Left foot pain. lateral sided foot pain. no injury or trauma. COMPARISON: None FINDINGS: Articular cartilage: Tiny osteochondral defect medial talar dome. Osteochondral defect lateral talar dome measuring 7 x 4 mm. Marrow signal: Marrow edema within the medial meniscus without discrete fracture line. This could be bone contusion or related to occult osteochondral defect. Minimal marrow edema posterolateral talar dome. Tendons:Visualized tendons are unremarkable Ligaments:Major ligaments intact Plantar Fascia:No evidence of tear No cystic or soft tissue mass. IMPRESSION: A few areas of marrow edema of the talus and medial meniscus probably related to underlying articular cartilage defect. No fracture or soft tissue abnormality. Reviewed, Interpreted and Dictated by Holger Marquez MD Transcribed by Carola Cabrera Authenticated and . [facility]
== END ==
PROVIDERS: PCP Family Medicine; Visit Provider Podiatrist
DX: M79.672 Pain in left foot (principal)
CPT/HCPCS: 73718

== ENCOUNTER 2022-11-16 10:00 | Outpatient (RCR) | payer BC, OTHER, SELFPAY ==
--- NOTE | 2022-10-06 18:04 | HMH.PTOPEV ---
PT Outpatient Evaluation Rehab PT Outpatient Evaluation Start: 10/06/22 15:54 Freq: Status: Active Protocol: Document 10/06/22 15:55 JONENEIL (Rec: 10/06/22 18:04 MARSHA [id number]) E-signed By Princess Kwong, PT Outpatient Therapy Subjective History Subjective History Pt is a 52 y/o male who reports gradual onset of L ankle pain in June without known trauma or injury. Pt reports he went to [facility] and saw Dr. Bales regarding the L foot/ankle pain and was initially placed in a cast for ~2 weeks then in a fx boot. Pt reports he has been off work since July taking it easy to assist with healing and has noticed improvements in pain. Pt reports he transitioned FWB in a tennis shoe on 08/22/22. Pt reports he is doing well with this but does notice increased pain when he is active. Pt reports pain is on the lateral aspect of the ankle/foot. Pt reports with increased activity he will also getting shooting pain across the top of his toes. Pt denies swelling or paresthesia. Pt reports he has a history of multiple ankle sprains and has been avoiding uneven ground due to ankle instability. Pt reports Dr. Bales mentioned an ankle brace for stability but he has not received one yet. Pt had a foot xray on 08/23/22 without significant findings and a MRI on 09/20/22 with impression of A few areas of marrow edema of the talus and medial meniscus probably related to underlying articular cartilage defect. No fracture or soft tissue abnormality. Pt reports he fell the morning of his MRI on 09/20/22 while going down the stairs and landed on the L ankle worsening pain. Pt reports he returns to Dr. Bales on 10/17. 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 Medical History: Atypical angina, Diabetes mellitus type 2, Hyperlipidemia, Hypertension, GERD, Hx of bilateral TKA, Hx of left PF release in 2000 Chief Complaint Pain,Stiff,Swelling Symptom Type Sharp,Shooting Symptoms Relieved By Rest/Positioning,Elevation Symptoms Aggravated By Physical Activity,Twisting, Walking Prior Functional Limitations None Current Functional Limitations Recreation Activity,Walking, Stairs,Balance Symptom Description Intermittent Level of pain today (0-10) 1 Pain scale - at its best (0-10) 0 Pain scale - at its worst (0-10) 8 Ankle/Foot Eval Gait Observation General Gait Pattern Observation Antalgic Gait,Decrease Weight Bear (L),Decrease Stride Lngth (L) Palpation Tenderness left Ankle/Foot Palpation Findings Tenderness Ankle/Foot Palpation Overall Comment lateral ankle and 5th met ROM Ankle/Foot Dorsiflexion w/Knee Extended 10 Active Range Motion (degrees) Ankle/Foot Plantar Flexion Active Range 35 of Motion (degrees) Ankle/Foot Eversion Active Range of 12 Motion (degrees) Ankle/Foot Inversion Active Range of 25 Motion (degrees) MMT Ankle Dorsiflexion Strength Grade 4 Good Ankle Plantarflexion Strength Grade 4 Good Foot Eversion Strength Grade 4- Good- Foot Inversion Strength Grade 4- Good- Outpatient Therapy Assessment Impairments Problems/Impairmments Palpation Tenderness,Impaired Range of Motion,Impaired Strength,Impaired Gait Pattern ,Impaired Walking,Impaired Standing,Impaired Stair Climbing,Impaired Incline Stepping,Impaired Stepping on Uneven Surface,Impaired Balance,Increased Edema, Subjective C/O Pain,Impaired Self Care/Self Management Prognosis Rehab Potential Good Clinical Impression Consistent with Diagnosis Yes Short Term Goals Number of Weeks 3 Increase Strength Yes: Improve L ankle MMT by half grade to assist with function/gait Improve Balance Yes: Tandem firm surface 30 without LOB to decrease fall risk Decrease Subjective C/O Pain Yes: Improve pain at worst to 6/10 to improve overall QOL Improve Self Care/Self Management Yes Patient to be Ind w/ HEP Yes 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 Number of Weeks 6 Increase Range of Motion Yes: Improve L ankle AROM to WNL Increase Strength Yes: Improve L ankle MMT 5/5 to assist with functional activities Increase Ability to Walk Yes: 10' with pain 4/10 or less to assist with occupation /ADLs Improve Ability to Climb Stairs Yes: 1 flight with 1 HR reciprocally to assist with home navigation Improve Balance Yes: Tandem stance foam 30 without LOB to decrease fall risk Decrease Subjective C/O Pain Yes: Improve pain at worst to 4/10 to improve overall QOL Improve Self Care/Self Management Yes Patient to be Ind w/ Advanced HEP Yes Outpatient Therapy Plan of Care Treatment Plan May Include Therapeutic Exercise Including Home Yes Exercise Program Manual Therapy Techniques Yes Neuromuscular Re-education Yes Therapeutic Activities to Return to Yes Previous Functional/Work Level Gait Training Yes ADL/Self Care Education Yes Dry Needling Yes Thermal Modalities Yes Electrical Stimulation Yes Ultrasound/Phonophoresis Yes Iontophoresis Yes Orthotics/Bracing/Splinting Yes Vasopneumatic Compression Pump Yes Massage Yes Manual Lymphatic Drainage Yes Eval/Re-Eval Yes Frequency Times per week 2 Duration Number of Weeks 4-6 Addendums This patient is a candidate for social No or vocational rehab? Patient/Guardian verbally acknowledges Yes understanding of treatment program and consents to further treatment? Patient/Guardian verbally acknowledges Yes understanding of diagnosis, prognosis and goals for treatment? G -code Required No Eval Complexity PT Charges 47184 - Moderate Complexity Shoulder/Elbow Eval Shoulder Objective Measurements Elbow Objective Measurements PHYSICIAN CERTIFICATION: I certify the specified therapy services for Douglas Harrison are required, authorized, and reviewed every 30 days.
--- NOTE | 2022-11-04 11:30 | HMH.RHREAS ---
Rehab Reassessment Rehab OP Re-assessment Start: 10/06/22 15:54 Freq: Status: Active Protocol: Document 11/04/22 11:18 MARSHA (Rec: 11/04/22 11:30 CRISTIANLea [id number]) E-signed By Princess Kwong PT Rehab Re-assessment Subjective Subjective Pt reports he feels 10% improved since starting PT. Pt reports he is still taking it easy most of the time. Pt reports intermittent lateral foot pain rated 6/10 on VAS scale at at worst. Pt reports this usually occurs when he is driving due to the positioning of his foot. 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 Objective Objective Notes L ankle TTP of 5th MTP and anterior joint line L ankle AROM: DF 10, PF 45, Inv 25, Ev 15 L ankle MMT: 4+/5 grossly in open chain Balance: tandem 30 without LOB Gait: mildly antalgic Assessment Progress Assessment Slower Than Expected Assessment Notes Pt has attended 8 PT visits consisting of aerobic exercise , ankle mobility, LE strengthening, balance/ proprioception training, trial of dry needling and modalities with good tolerance . Pt demonstrates improved ankle AROM, strength and balance this date compared to the initial evaluation. Pt continues to report 6/10 pain worse with the ankle is in a dorsiflexed position and with prolonged activity. Pt would continue to benefit from skilled PT to further improve pain severity, ankle strength, and balance/proprioception to assist with functional activity tolerance and return to PLOF. Patient goals met ST/5 Goals Not Met LTG Revised Goals n/a Plan Plan Continue initial POC Frequency of Therapy 2x/week Duration of therapy 4 more weeks Time and Billing Re-Eval Time 9 Re-Eval Billing Units 1 PHYSICIAN CERTIFICATION: I certify the specified therapy services for Douglas Harrison are required, authorized, and reviewed every 30 days.
== END 2022-11-16 11:15 | disposition home or self-care (01) ==
LOC: PT 10:00
PROVIDERS: PCP Family Medicine; Visit Provider Podiatrist
DX: M84.375A Stress fracture, left foot, initial encounter for fracture (principal); M25.372 Other instability, left ankle; S93.402A Sprain of unspecified ligament of left ankle, initial encounter
CPT/HCPCS: 20561; 97010; 97014; 97016; 97033; 97035; 97110; 97112; 97163; 97164; G0283

== ENCOUNTER 2023-04-25 16:21 | Emergency (ER) | payer BC, OTHER, SELFPAY ==
[2023-04-25 16:35] VITALS: BP 126/66; PULSE 72; RESP 18; TEMP 36.6; O2SAT 98; BMI 28.0
[2023-04-25 16:44] VITALS: BP 126/66; PULSE 72; RESP 18; TEMP 36.6; O2SAT 98
--- NOTE | 2023-04-25 16:44 | EXP.UTC ---
Discharge Plan Disposition Patient Disposition: Home, Self-Care Condition: Good Prescriptions Prescriptions: No Action glimepiride 2 mg tablet 2 mg PO DAILY Patient Comments: TAKE 1 TABLET BY MOUTH ONCE DAILY rosuvastatin 20 mg tablet 20 mg PO HS pantoprazole 40 mg tablet,delayed release (DR/EC) 40 mg PO DAILY Ludwinuhiwot SoloStar U-300 Insulin 300 unit/mL (1.5 mL) insulin pen 36 unit SQ DAILY Mounjaro 2.5 mg/0.5 mL pen injector 2.5 mg SQ WEEKLY Jardiance 25 mg tablet 25 mg PO DAILY Trintellix 20 mg tablet 20 mg PO DAILY bisoprolol fumarate 10 mg tablet 10 mg PO DAILY Qty: 90 1RF Referrals Follow up/Referrals: Parth Allen MD [Primary Care Provider] - See instructions Activity Restrictions/Add. Instructions Additional Instructions/Restrictions: *Monitor Temp, Over the counter Motrin or Tylenol as directed/as needed Tylenol every 4 hours and Motrin every 6 hours (as long as your family doctor has told you that you can take it) for fever or pain. and straight to ER if unable to lower temp less than 101.0 after medication given *Warm salt water gargles may help to soothe the throat *Throat Lozenges? *Warm fluids like tea with honey may help to soothe the throat? *Sleep elevated *Humidifier/Vaporizer Follow up IMMEDIATELY for new or worsening symptoms or no Noticeable improvement over the next 48-72 hours. 911 for difficulty breathing or swallowing You were tested for today for COVID19 your test result should be back in the next 24hours, you may check your results on the [facility] My Health Portal if your COVID or Influenza is positive then you must not work or attend school for 5 days and Quarantine if you have COVID Clinical Impressions Clinical Impression: Viral syndrome Stand Alone Forms Stand Alone Forms: Work/School Release Instructions Patient Instructions: DI for Viral Syndrome Discharge ED Provider: Pam Correa [facility] HPI General Stated complaint: sore throat, cough, runny nose Mode of Arrival: Ambulatory Source of Information: Patient Limitations: No Limitations Time Seen by Provider: 04/25/23 16:45 Description of Symptoms (Recalled from Triage Doc. by RN): PATIENT C/O RUNNY NOSE, SNEEZING, AND SCRATCHY THROAT X 2 DAYS. RECENTLY EXPOSED TO COVID HEENT Symptoms (Recalled from RN notes): Yes Resp Symptoms (Recalled from RN notes): No Skin Symptoms (Recalled from RN notes): No MS Symptoms (Recalled from RN notes): No Functional Status (Recalled from RN notes): WNL History of Present Illness Provider Complaint: Patient states that for the last couple days he has been having sneezing, cough and runny nose States that jeremy that sits with him at lunch just tested positive for COVID and he was worried he may have it too since he was having the same symptoms wanting to get tested for COVID Related Data Home Medications Medication Instructions Recorded Confirmed glimepiride 2 mg tablet 2 mg PO DAILY Diabetes 05/13/21 12/08/22 pantoprazole 40 mg tablet,delayed 40 mg PO DAILY GERD 05/13/21 12/08/22 release rosuvastatin 20 mg tablet 20 mg PO HS Cholesterol 05/13/21 12/08/22 vortioxetine 20 mg tablet 20 mg PO DAILY 06/22/21 12/08/22 (Trintellix) insulin glargine U-300 conc 300 36 unit SQ DAILY 06/22/22 12/08/22 unit/mL (1.5 mL) subcutaneous pen (Toujeo SoloStar U-300 Insulin) tirzepatide 2.5 mg/0.5 mL 2.5 mg SQ WEEKLY 06/22/22 12/08/22 subcutaneous pen injector (Mounjaro) empagliflozin 25 mg tablet 25 mg PO DAILY 11/17/22 12/08/22 (Jardiance) Previous Rx's Medication Instructions Recorded bisoprolol fumarate 10 mg tablet 10 mg PO DAILY heart rate #90 tabs 01/27/22 Allergies Allergy/AdvReac Type Severity Reaction Status Date / Time Penicillins Allergy Intermediate I-HIVES Verified 12/08/22 15:45 Worker's Comp Is this a Worker's Comp case?: No [facility] Disclaimer: The information contained in this section may have been updated after the patient was seen, as this information can be updated by other users. Medical History Abnormal cardiovascular stress test Abnormal electrocardiography Atypical angina Deviated nasal septum Diabetes mellitus, type 2 Dyspnea Hyperlipidemia Hypertension Kidney stone Myocardial bridge Surgical History H/O umbilical hernia repair History of bilateral knee arthroplasty Social History Smoking Status: Never smoker alcohol intake: never current occupational status: employed Travel in the last 8 weeks: Inside the [place] ROS Obtained: Yes All systems reviewed & no additional complaints except as documented and Yes Systems reviewed as appropriate & no additional complaints except as documented Constitutional Constitutional: Reports system reviewed and no additional complaints, except as documented, Reports as per HPI, Denies body ache, Denies fever(s) and Denies headache(s) ENT Ears, Nose, Mouth, and Throat: Reports system reviewed and no additional complaints, except as documented, Reports as per HPI, Denies headache(s), Reports nasal congestion, Reports nasal discharge and Reports other (sneezing) Cardiovascular Cardiovascular: Reports system reviewed and no additional complaints, except as documented and Reports as per HPI Respiratory Respiratory: Reports system reviewed and no additional complaints, except as documented, Reports as per HPI and Reports cough Gastrointestinal Gastrointestingal: Reports system reviewed and no additional complaints, except as documented and as per HPI Musculoskeletal Musculoskeletal: Reports system reviewed and no additional complaints, except as documented and Reports as per HPI Neurologic Neurologic: Denies headache(s) Physical Exam General General appearance: alert and in no apparent distress ENT ENT exam: Present mucous membranes moist Expanded ENT Exam Nose exam: Present other (clear drainage) Throat exam: Present normal inspection Respiratory Respiratory exam: Present normal lung sounds bilaterally; Absent respiratory distress or wheezes Cardiovascular Cardiovascular exam: Present regular rate, normal rhythm and normal heart sounds Abdominal Exam Abdominal exam: Present soft and normal bowel sounds; Absent distention or tenderness Neurological Exam Neurological exam: Present alert, oriented X3 and normal gait Medical Decision Making Hemant Inquiry Pt receiving controlled substance: No Hemant was queried for this patient: No Vital Signs: 04/25/23 16:35 Temperature 97.8 F Temperature Source Oral Pulse Rate [Left Brachial] 72 Respiratory Rate 18 Blood Pressure [Left Arm] 126/66 Blood Pressure Mean [Left Arm] 86 Blood Pressure Source [Left Arm] Automatic Cuff Blood Pressure Position [Left Arm] Sitting 02 Sat by Pulse Oximetry 98 Oxygen Delivery Method Room Air Orders (Tests/Meds): ORDERS Category Date Time Status Covid-19 Nasal PCR ([facility]) Routine Lab 04/25/23 16:41 Ordered
== END 2023-04-25 16:51 | disposition home or self-care (01) ==
PROVIDERS: Emergency Provider Nurse Practitioner; PCP Family Medicine
DX: R05.9 Cough, unspecified (principal); R09.81 Nasal congestion; R07.0 Pain in throat; Z20.822 Contact with and (suspected) exposure to COVID-19; E11.9 Type 2 diabetes mellitus without complications; E78.5 Hyperlipidemia, unspecified; I10 Essential (primary) hypertension; Z79.4 Long term (current) use of insulin; Z79.84 Long term (current) use of oral hypoglycemic drugs; Z79.85 Long-term (current) use of injectable non-insulin antidiabetic drugs
CPT/HCPCS: 87635; 99212; 99214; G0463

== ENCOUNTER 2023-08-20 11:47 | Emergency (ER) | payer BC, OTHER, SELFPAY ==
[2023-08-20 11:48] VITALS: BP 121/74; PULSE 84; RESP 18; TEMP 36.7; O2SAT 97; BMI 27.6
--- NOTE | 2023-08-20 12:07 | ED_ITS ---
Discharge Plan Disposition Patient Disposition: Home, Self-Care Condition: Good Prescriptions Prescriptions: New fluticasone propionate [Allergy Relief (fluticasone)] 50 mcg/actuation spray,suspension 1 spray intranasal BID Qty: 16 0RF Rx Instructions: administer into each nostril No Action glimepiride 2 mg tablet 2 mg PO DAILY Patient Comments: TAKE 1 TABLET BY MOUTH ONCE DAILY rosuvastatin 20 mg tablet 20 mg PO HS pantoprazole 40 mg tablet,delayed release (DR/EC) 40 mg PO DAILY Toujeo SoloStar U-300 Insulin 300 unit/mL (1.5 mL) insulin pen 36 unit SQ DAILY Mounjaro 2.5 mg/0.5 mL pen injector 2.5 mg SQ WEEKLY Jardiance 25 mg tablet 25 mg PO DAILY Trintellix 20 mg tablet 20 mg PO DAILY bisoprolol fumarate 10 mg tablet 10 mg PO DAILY Qty: 90 1RF Referrals Follow up/Referrals: Parth Allen MD [Primary Care Provider] - See instructions Activity Restrictions/Add. Instructions Additional Instructions/Restrictions: Use medication as prescribed. If symptoms persist or worsen, follow up with PCP or return to the clinic. Clinical Impressions Clinical Impression: Eustachian tube disorder Qualifiers: Laterality: left Qualified Code(s): H69.92 - Unspecified Eustachian tube disorder, left ear Instructions Patient Instructions: DI for Eustachian Tube Dysfunction-Adult Discharge ED Provider: Stephanie Maloney [facility] General Stated complaint: sore throat, left ear pain Mode of Arrival: Ambulatory Source of Information: Patient Limitations: No Limitations Time Seen by Provider: 08/20/23 12:06 Description of Symptoms (Recalled from Triage Doc. by RN): PT REPORTS WORSENING LEFT EAT AND THROAT PAIN HEENT Symptoms (Recalled from RN notes): Yes Resp Symptoms (Recalled from RN notes): No Skin Symptoms (Recalled from RN notes): No MS Symptoms (Recalled from RN notes): No Functional Status (Recalled from RN notes): WNL History of Present Illness Provider Complaint: Pt reports that his ear has been bothering him for the last couple of days and he awoke this morning with a sore throat and left ear pain that ran down the side of his neck. Related Data Home Medications Medication Instructions Recorded Confirmed glimepiride 2 mg tablet 2 mg PO DAILY Diabetes 05/13/21 12/08/22 pantoprazole 40 mg tablet,delayed 40 mg PO DAILY GERD 05/13/21 12/08/22 release rosuvastatin 20 mg tablet 20 mg PO HS Cholesterol 05/13/21 12/08/22 vortioxetine 20 mg tablet 20 mg PO DAILY 06/22/21 12/08/22 (Trintellix) insulin glargine U-300 conc 300 36 unit SQ DAILY 06/22/22 12/08/22 unit/mL (1.5 mL) subcutaneous pen (Toujeo SoloStar U-300 Insulin) tirzepatide 2.5 mg/0.5 mL 2.5 mg SQ WEEKLY 06/22/22 12/08/22 subcutaneous pen injector (Mounjaro) empagliflozin 25 mg tablet 25 mg PO DAILY 11/17/22 12/08/22 (Jardiance) Previous Rx's Medication Instructions Recorded bisoprolol fumarate 10 mg tablet 10 mg PO DAILY heart rate #90 tabs 01/27/22 fluticasone propionate 50 1 spray intranasal BID #16 grams 08/20/23 mcg/actuation nasal spray,suspension (Allergy Relief (fluticasone)) Allergies Allergy/AdvReac Type Severity Reaction Status Date / Time Penicillins Allergy Intermediate I-HIVES Verified 12/08/22 15:45 Worker's Comp Is this a Worker's Comp case?: No [facility] Disclaimer: The information contained in this section may have been updated after the patient was seen, as this information can be updated by other users. Medical History Abnormal cardiovascular stress test Abnormal electrocardiography Atypical angina Deviated nasal septum Diabetes mellitus, type 2 Dyspnea Hyperlipidemia Hypertension Kidney stone Myocardial bridge Surgical History H/O umbilical hernia repair History of bilateral knee arthroplasty Social History Smoking Status: Never smoker alcohol intake: never current occupational status: employed Travel in the last 8 weeks: Inside the [place] ROS Obtained: Yes All systems reviewed & no additional complaints except as documented Constitutional Constitutional: Reports system reviewed and no additional complaints, except as documented Eyes Eyes: Reports system reviewed and no additional complaints, except as documented ENT Ears, Nose, Mouth, and Throat: Reports system reviewed and no additional compla ints, except as documented, Reports as per HPI, Reports otalgia and Reports sore throat Cardiovascular Cardiovascular: Reports system reviewed and no additional complaints, except as documented Respiratory Respiratory: Reports system reviewed and no additional complaints, except as documented Gastrointestinal Gastrointestingal: Reports system reviewed and no additional complaints, except as documented Genitourinary Male Genitourinary: Reports system reviewed and no additional complaints, except as documented Musculoskeletal Musculoskeletal: Reports system reviewed and no additional complaints, except as documented Integumentary/Breasts Skin/Breast: Reports system reviewed and no additional complaints, except as documented Neurologic Neurologic: Reports system reviewed and no additional complaints, except as documented Endocrine Endocrine: Reports system reviewed and no additional complaints, except as documented Hematologic/Lymphatic Henatologic/Lymphatic: Reports system reviewed and no additional complaints, except as documented Allergic/Immunologic Allergic/Immunologic: Reports system reviewed and no additional complaints, except as documented Physical Exam General General appearance: alert and in no apparent distress Head Head exam: atraumatic and normocephalic Eye Eye exam: Present normal appearance Expanded ENT Exam External ear exam: Present normal external inspection TM/Canal exam: Left TM: effusion (clear bubbles present) Nose exam: Absent sinus tenderness Nasal speculum exam: Bilateral: normal Mouth exam: Present normal external inspection Teeth exam: Present normal inspection Throat exam: Present other Comment: post nasal drainage noted Neck Neck exam: Present normal inspection; Absent lymphadenopathy Chest Chest inspection: Present normal inspection and symmetric chest wall rise Respiratory Respiratory exam: Present normal lung sounds bilaterally Cardiovascular Cardiovascular exam: Present regular rate, normal rhythm and normal heart sounds Abdominal Exam Abdominal exam: Present soft and normal bowel sounds Back Exam Back exam: Present normal inspection Neurological Exam Neurological exam: Present alert and oriented X3 Psychiatric Psychiatric exam: Present normal affect and normal mood Skin Skin exam: Present warm, dry and intact Lymphatic Lymphatic Findings: no adenopathy Medical Decision Making Hemant Inquiry Pt receiving controlled substance: No Hemant was queried for this patient: No Vital Signs: 08/20/23 11:48 Temperature 98.1 F Temperature Source Oral Pulse Rate [Radial] 84 Respiratory Rate 18 Blood Pressure [Right Arm] 121/74 Blood Pressure Mean [Right Arm] 89 Blood Pressure Source [Right Arm] Automatic Cuff Blood Pressure Position [Right Arm] Sitting 02 Sat by Pulse Oximetry 97 Oxygen Delivery Method Room Air
[2023-08-20 12:21] VITALS: BP 121/74; PULSE 84; RESP 18; TEMP 36.7; O2SAT 97
== END 2023-08-20 12:21 | disposition home or self-care (01) ==
PROVIDERS: Emergency Provider Nurse Practitioner Family; PCP Family Medicine
DX: H69.92 Unspecified Eustachian tube disorder, left ear (principal); R07.0 Pain in throat; H92.02 Otalgia, left ear
CPT/HCPCS: 99212; 99214; G0463

== ENCOUNTER 2023-11-04 16:34 | Emergency (ER) | payer BC, OTHER, SELFPAY ==
--- NOTE | 2023-11-04 17:23 | ED_ITS ---
Discharge Plan Disposition Patient Disposition: Home, Self-Care Condition: Good Prescriptions Prescriptions: New methylprednisolone 4 mg Tablets,Dose Pack 4 mg PO DIRECTED 6 Days Qty: 21 0RF Rx Instructions: Take 1 pack as directed for 6 days No Action glimepiride 2 mg tablet 2 mg PO DAILY Patient Comments: TAKE 1 TABLET BY MOUTH ONCE DAILY rosuvastatin 20 mg tablet 20 mg PO HS pantoprazole 40 mg tablet,delayed release (DR/EC) 40 mg PO DAILY Ludwinuhiwot McnairoStar U-300 Insulin 300 unit/mL (1.5 mL) insulin pen 36 unit SQ DAILY Mounjaro 2.5 mg/0.5 mL pen injector 2.5 mg SQ WEEKLY Jardiance 25 mg tablet 25 mg PO DAILY Trintellix 20 mg tablet 20 mg PO DAILY bisoprolol fumarate 10 mg tablet 10 mg PO DAILY Qty: 90 1RF fluticasone propionate [Allergy Relief (fluticasone)] 50 mcg/actuation spray,suspension 1 spray intranasal BID Qty: 16 0RF Rx Instructions: administer into each nostril Referrals Follow up/Referrals: Parth Allen MD [Primary Care Provider] - See instructions Activity Restrictions/Add. Instructions Additional Instructions/Restrictions: Rest the extremity, Elevate the extremity as tolerated while you are resting. Use the crutches and the knee immobilizer for the next several days to allow your knee time to rest and heal. Take the medication as directed. Follow up with orthopedics as you already plan to do. Follow up with your regular doctor. GO TO THE ER FOR ANY WORSENING SYMPTOMS Clinical Impressions Clinical Impression: Pain in right knee, Effusion of right knee, Instability of right knee joint Instructions Patient Instructions: How to Use Crutches, How to Use a Knee Immobilizer Print Language Print Language: Trinidadian Discharge ED Provider: Kevin Mcmahan [facility] General Stated complaint: Right knee pain Time Seen by Provider: 11/04/23 17:23 History of Present Illness Provider Complaint: He states that for the past 1 week he has had right knee pain. He denies any injury, but he states that he may have twisted it getting out of his truck. He has had similar episodes of right knee pain like this be fore, but it was not as bad as it is now. He denies any other complaints or joint pain. Related Data Home Medications ?Medication ?Instructions ?Recorded ?Confirmed glimepiride 2 mg tablet 2 mg PO DAILY Diabetes 05/13/21 12/08/22 pantoprazole 40 mg tablet,delayed 40 mg PO DAILY GERD 05/13/21 12/08/22 release rosuvastatin 20 mg tablet 20 mg PO HS Cholesterol 05/13/21 12/08/22 vortioxetine 20 mg tablet 20 mg PO DAILY 06/22/21 12/08/22 (Trintellix) insulin glargine U-300 conc 300 36 unit SQ DAILY 06/22/22 12/08/22 unit/mL (1.5 mL) subcutaneous pen (Toujeo SoloStar U-300 Insulin) tirzepatide 2.5 mg/0.5 mL 2.5 mg SQ WEEKLY 06/22/22 12/08/22 subcutaneous pen injector (Mounjaro) empagliflozin 25 mg tablet 25 mg PO DAILY 11/17/22 12/08/22 (Jardiance) Previous Rx's ?Medication ?Instructions ?Recorded bisoprolol fumarate 10 mg tablet 10 mg PO DAILY heart rate #90 tabs 01/27/22 fluticasone propionate 50 1 spray intranasal BID #16 grams 08/20/23 mcg/actuation nasal spray,suspension (Allergy Relief (fluticasone)) methylprednisolone 4 mg tablets in 4 mg PO DIRECTED 6 days #21 tabs 11/04/23 a dose pack Allergies Allergy/AdvReac Type Severity Reaction Status Date / Time Penicillins Allergy Intermediate I-HIVES Verified 12/08/22 15:45 [facility] Disclaimer: The information contained in this section may have been updated after the patient was seen, as this information can be updated by other users. Medical History Abnormal cardiovascular stress test Abnormal electrocardiography Atypical angina Deviated nasal septum Diabetes mellitus, type 2 Dyspnea Hyperlipidemia Hypertension Kidney stone Myocardial bridge Surgical History H/O umbilical hernia repair History of bilateral knee arthroplasty Social History Smoking Status: Never smoker alcohol intake: never current occupational status: employed Travel in the last 8 weeks: Inside the [place] ROS Obtained: Yes All systems reviewed & no additional complaints except as documented Constitutional Constitutional: Denies chills and Denies fever(s) Eyes Eyes: Denies eye discharge ENT Ears, Nose, Mouth, and Throat: Denies dizziness, Denies otalgia and Denies sore throat Cardiovascular Cardiovascular: Denies chest pain Respiratory Respiratory: Denies shortness of breath, Denies chest congestion, Denies cough, Denies stridor and Denies wheezing Gastrointestinal Gastrointestingal: Denies nausea or vomiting Musculoskeletal Musculoskeletal: Reports as per HPI Integumentary/Breasts Skin/Breast: Denies rash Neurologic Neurologic: Denies dizziness and Denies paresthesias Allergic/Immunologic Allergic/Immunologic: Denies wheezing Physical Exam General General appearance: alert and in no apparent distress Head Head exam: atraumatic, normocephalic and normal inspection Eye Eye exam: Present normal appearance, PERRL and EOMI ENT ENT exam: Present normal exam, normal oropharynx, mucous membranes moist, TM's normal bilaterally and normal external ear exam Neck Neck exam: Present normal inspection, full ROM and trachea midline; Absent meningismus or lymphadenopathy Chest Chest inspection: Present normal inspection and symmetric chest wall rise; Absent tenderness Respiratory Respiratory exam: Present normal lung sounds bilaterally; Absent respiratory distress Cardiovascular Cardiovascular exam: Present regular rate and normal rhythm; Absent JVD Abdominal Exam Abdominal exam: Present soft and normal bowel sounds; Absent distention, tenderness or guarding Extremities Exam Extremities exam: Present normal capillary refill; Absent calf tenderness Expanded Lower Extremity Exam Right: Hip/Pelvis exam: Present normal inspection and full ROM; Absent tenderness Upper leg exam: Present normal inspection and full ROM; Absent tenderness Knee exam: Present tenderness, swelling, effusion and knee extension intact; Absent full ROM, abrasion, laceration, ecchymosis, deformity, crepitus, dislocation, erythema, anterior drawer sign, posterior draw sign, pain with valgus, laxity with valgus, pain with varus or laxity with varus Lower leg exam: Present normal inspection, full ROM and Achilles tendon i ntact; Absent tenderness or Homans' sign Ankle exam: Present normal inspection and full ROM; Absent tenderness Foot/toe exam: Present normal inspection and full ROM; Absent tenderness Neurovascular/Tendon exam: Present normal capillary refill, normal 2-point discrimination and normal fine/light touch; Absent pulse deficit, motor deficit, sensory deficit, tendon deficit, extremity cold to touch or pallor Gait: observed and limited by pain Back Exam Back exam: Present normal inspection; Absent tenderness Neurological Exam Neurological exam: Present alert and oriented X3 Psychiatric Psychiatric exam: Present normal affect and normal mood Skin Skin exam: Present warm, dry, intact and normal color Lymphatic Lymphatic Findings: no adenopathy Medical Decision Making Medical Records Medical records reviewed: No I reviewed the patient's medical records. Hemant Inquiry Pt receiving controlled substance: No Procedures Risk/Benefits of Procedure(s) Were Explained: Yes Orthopedic Splinting/Casting Injury #1: Side: right Lower Extremity Injury Location: knee Lower Extremity Immobilizer: knee immobilizer and applied by nurse/dr johnson Other Orthopedic Equipment: crutches Post Cast/Splinting Neuro Status: intact and no change Post Cast/Splinting Vasc Status: intact and no change
[2023-11-04 17:27] VITALS: BP 113/73; PULSE 74; RESP 16; TEMP 36.6; O2SAT 98; BMI 26.2
[2023-11-04 18:10] VITALS: BP 113/73; PULSE 74; RESP 16; TEMP 36.6; O2SAT 98
== END 2023-11-04 18:11 | disposition home or self-care (01) ==
PROVIDERS: Emergency Provider Nurse Practitioner Family; PCP Family Medicine
DX: M25.561 Pain in right knee (principal); M25.461 Effusion, right knee; M25.361 Other instability, right knee
CPT/HCPCS: 99212; 99214; G0463

== ENCOUNTER 2023-12-10 09:38 | Outpatient (CLI) | payer BC, OTHER, SELFPAY ==
[2023-12-10 10:34] LABS: Albumin Level 4.5 g/dl (3.5-5.0); Chloride 108 mmol/L (98-107); Sodium 142 mmol/L (136-145)
[2023-12-10 10:35] LABS: Potassium 4.3 mmoL/L (3.5-5.1)
[2023-12-10 10:37] LABS: Alanine Aminotransferase 21 U/L (12-78); Albumin/Globulin Ratio 1.8 (1.1-1.8); Alkaline Phosphatase 73 U/L (38-126); Anion Gap 12.3 mEq/L (5-15); Aspartate Amino Transferase 25 U/L (17-59); Bilirubin,Total 0.6 mg/dl (0.2-1.3); Blood Urea Nitrogen 16 mg/dl (9-20); Carbon Dioxide 26 mmol/L (22.0-30.0); Cholesterol 178 mg/dl (140-200); Estimated Glomerular Filt Rate 78 ml/min (>60); GFR (African American) 95 ML/MIN (>60); Globulin 2.5 g/dL (1.3-3.2); Glucose 142 mg/dl (74-100); Triglycerides 126 mg/dl (30-150); VLDL Cholesterol 25 mg/dL (0-40)
[2023-12-10 10:38] LABS: Calcium 9.3 mg/dl (8.4-10.2); Chol/HDL Ratio 5.2 (1-3.5); HDL Cholesterol 34 mg/dl (40-60)
[2023-12-10 12:37] LABS: Hemoglobin A1C 9.3 % (4.0-6.0)
[2023-12-10 13:37] LABS: Direct LDL Cholesterol 114.13 mg/dL (100-129)
== END 2023-12-10 23:59 | disposition home or self-care (01) ==
LOC: LAB 09:39
PROVIDERS: PCP Family Medicine; Visit Provider Family Medicine
DX: E11.65 Type 2 diabetes mellitus with hyperglycemia (principal); Z79.85 Long-term (current) use of injectable non-insulin antidiabetic drugs; Z79.4 Long term (current) use of insulin
CPT/HCPCS: 36415; 80053; 80061; 83036; 84153

== ENCOUNTER 2024-04-25 15:00 | Outpatient (RCR) | payer BC, OTHER, SELFPAY | END 2024-04-25 23:59 | disposition home or self-care (01) | LOC: PT 15:00 | PROVIDERS: PCP Family Medicine; Visit Provider Nurse Practitioner Family | DX: M54.6 Pain in thoracic spine (principal) | CPT/HCPCS: 97014; 97110; 97140; 97163; 97530; G0283 ==

== ENCOUNTER 2024-05-08 15:00 | Outpatient (RCR) | payer BC, OTHER, SELFPAY | END 2024-05-08 23:59 | disposition home or self-care (01) | LOC: PT 15:00 | PROVIDERS: PCP Family Medicine; Visit Provider Nurse Practitioner Family | DX: M54.9 Dorsalgia, unspecified (principal) | CPT/HCPCS: 97014; 97110; 97164; G0283 ==

== ENCOUNTER 2024-06-09 09:16 | Outpatient (CLI) | payer BC, OTHER, SELFPAY ==
--- OUTSIDE RECORDS SUMMARY | 2024-06-09 09:20 | XMS_ITS | Clinical Summary ---
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 Name Role Phone MARIA ESTHER FOWLER, PARVEZ Unavailable [phone] Silvana FOWLER, Navin Unavailable [phone] Reason for Visit and Chief Complaint The Chief Complaint is: right knee pain Problems Includes: Problems addressed during this encounter and other active Problems Current Visit Onset Date Resolved Date Provider Conditio n Status Joint Pain in the Right Knee 11/08/2023 Jose Card MD Active Last Documented On 4 2:38PM ; [facility], [facility] Past Visits Onset Date Resolved Date Provider Condition Status Joint Pain in the Left Wrist 03/28/2024 Jevon Alejandro PA-C Active Last Documented On 5 2:28PM ; [facility] Joint Pain Left Thumb 03/28/2024 Jevon Alejandro PA-C Active Last Documented On 5 2:29PM ; [facility] Lower Back Pain 02/01/2022 Douglas Blake PA-C A ctive Last Documented On 2 11:26AM ; [facility] Joint Pain in the Right Hip 02/01/2022 Douglas Blake PA-C Active Last Documented On 2 11:27AM ; [facility] Foot Pain (Soft Tissue) 12/15/2011 Bj Caba od DPM Active Last Documented On 2 1:44PM ; [facility] Plan of Treatment Recommend right knee MRI to evaluate meniscus and then likely we will need arthroscopy for repair versus resection we will discuss treatment options on return after MRI scan right knee - Last Documented On 11/11/2023 9:52AM ; [facility], [facility] Pending Tests Order Diagnosis Results Due Ordering P rovider Radiology - MRI MRI Knee Overweight 11/22/23 Jose zavala MD Last Documented On 4 9:52AM ; [facility], [facility] Future Appointments Date Time Location Provi wilber Follow Up 06/27/2024 3:45PM [facility] ALICEJostin Alejandro PA-C Last Documented On 5 3:01PM ; [facility], [facility] Instructions to patient Lose weight Last Documented On 4 2:37PM ; [facility], [facility] Assessments Includes: Assessments from this encounter Findings - Overweight - Last Documented On 11/11/2023 9:52AM ; [facility], [facility] Recurrent medial compartment mechanical symptoms after twisting injury remote history of ACL reconstruction and medial meniscus repair failed conservative treatment - Last Documented On 11/11/2023 9:52AM ; [facility], [facility] Instructions Includes: Instructions from this encounter Instructions to patient Lose weight Last Documented On 4 2:37PM ; [facility] Medical Equipment - Implanted Devices Includes: Current Devices No Medical Equipment Recorded Medications Includes: Medications discussed during this encounter and other current Medications Current Medications (continue as prescribed) methylPREDNISolone 4 MG Oral Tablet Therapy Pack 11/03 Provider: Diagnosis: Last Documented On 4 2:38PM By Sada Jon ; [facility] Ozempic (0.25 or 0.5 MG/DOSE ) 2 MG/3ML Subcutaneous Solution Pen-injector 10/28/2023 Provider: PARVEZ MAYO MD Diagnosis: Last Documented On 4 2:38PM By Sada Arenas [facility] Pantoprazole Sodium 40 MG Or al Tablet Delayed Release 10/23/2023 Provider: PARVEZ MAYO MD Diagnosis: Last Documented On 4 2:38PM By Sada Jon ; [facility] FreeStyle Laci 3 Sensor Miscellaneous 10/18/2023 Pr ovider: Diagnosis: Last Documented On 4 2:38PM By Sada Jon ; [facility], [facility] Paxlovid (300/100) 20 x 150 MG & 10 x 100MG Oral Tablet Therapy Pack 10/03/2023 Provider: PARVEZ MAYO MD Diagnosis: Last Documented On 4 2:38PM By Sada Jon ; [facility] Azithromycin 250 MG Oral Tablet 09/30/2023 Provider: Maryjane Aly PA-C Diagnosis: Last Documented On 4 2:38PM By Sada oJn ; [facility] Toujeo SoloStar 300 UNIT/ML Subcutaneous Solution Pen-injector 09/14/2023 Provider: PARVEZ MAYO MD Diagnosis: Last Documented On 4 2:38PM By Sada Jon ; [facility] Jardiance 25 MG Oral Tablet 08/22/2023 Provider: Yenifer Michele APRN Diagnosis: Last Documented On 4 2:38PM By Sada Jon ; [facility] Fluticasone Propionate 50 MCG/ACT Nasal Suspension Provider: Diagnosis: Last Documented On 4 2:38PM By Sada Jon ; [facility] Bisoprolol Fumarate 10 MG Oral Tablet 08/19/2023 Pro vider: PARVEZ MAYO MD Diagnosis: Last Documented On 4 2:38PM By Sada Jon ; [facility] EQL Omeprazole 20 MG OR TBEC 12/15/2011 Provider: Diagnosis: Last Documented On 2 1:44PM By Humberto Holt User ; [facility], [facility] Past Medications on file Naproxen 500 MG OR TABS 11/10/2011 - 12/10/2011 Provid er: Bj Magana DPM Diagnosis: take with food/bgo pharm/ab Last Documented On 2 3:45PM By Humberto 2 User ; [facility] Medrol (Tan) 4 MG OR TABS 11/10/2011 - 12/01/2011 Prov ider: Bj Magana DPM Diagnosis: ab Last Documented On 2 3:44PM By Paul 2 User ; [facility] Medications Administered Includes: Administered Medications from this encounter No Administered Medications Recorded Vital Signs Includes: Vital Signs from this encounter Vital Name 11/08/2023 02:51P Height (in) 75 Weight (lb) 210 Body Mass Index 26.2 Body Surface Area 2.2 Note: bna Last Documented: On 11/08/2023 2:51PM ; [facility] Results Includes: Results discussed during this encounter No Results Recorded For Specified Dates History of Present Illness Includes: History of Present Illness from this encounter JAEL Harrison is a 53 year old male. - Allergy list reviewed - Problem list reviewed - Medication list reviewed - - Review of medications documented Patient with recurrent medial joint line pain effusions intermittent locking and clicking after twisting injury few months ago not improving with anti- inflammatories rest activity modification he did have ACL reconstruction that same knee back in 2004 but has done well since then Social History Description Last Updated No recent change in diet 05/12/2022 Last Documented On 4 2:37PM ; [facility], [facility] Not a current smoker. 05/12/2022 Last Documented On 4 2:37PM ; [facility] Not using alcohol 05/12/2022 Last Documented On 4 2:37PM ; [facility], [facility] Not using drugs 05/12/2022 Last Documented On 4 2:37PM ; [facility] Tobacco non-user 02/01/2022 Last Documented On 4 2:37PM ; [facility], [facility] Caffeine use 02/01/2022 Last Documented On 4 2:37PM ; [facility] Not exercising regularly 02/01/2022 Last Documented On 4 2:37PM ; [facility], [facility] No tobacco use 02/14/2012 Last Documented On 4 2:37PM ; [facility], [facility] Smoking status : Never smoked/ Recode: 4 02/14/2012 Last Documented On 4 2:37PM ; [facility] Procedures and Surgical History Includes: Procedures from this encounter Procedures Code Diagnosis Performing Provider Service Location Service Date DRAIN/INJECT, JOINT/BURSA (RIGHT) Unilateral primary osteoarthritis, right knee Jose Card MD [facility] 11/08/2023 Last Documented On 4 11:03AM ; [facility] Injection, betamethasone acetate 6mg per cc and betamethason [id number] Unilateral primary osteoarthritis, right knee Jose Card MD [facility] 11/08/2023 Last Documented On 4 11:03AM ; [facility], [facility] X-RAY EXAM OF KNEE 1 OR 2 VIEWS (RIGHT) 50181 Unilateral primary osteoarthritis, right knee Jose Card MD [facility] 11/08/2023 Last Documented On 4 11:03AM ; [facility], [facility] use of tobacco assessment performed 1000F Last Documented On 4 2:37PM ; [facility] review of medications documented 1160F Last Documented On 4 2:37PM ; [facility] Surgical History Last Updated History of hernia repair 02/01/2022 Last Documented On 4 2:37PM ; [facility] History of History of Arthroscopy 2021 Last Documented On 4 2:37PM ; [facility] History of Previous Fractures 02/01/2022 Last Documented On 4 2:37PM ; [facility] Medical History Includes: Medical History addressed during this encounter Description Last Updated History of depression 11/08/2023 Last Documented On 4 9:52AM ; [facility] History of diabetes mellitus 11/08/2023 Last Documented On 4 2:37PM ; [facility] History of diabetes mellitus 11/08/2023 Last Documented On 4 9:52AM ; [facility] History of Heartburn / Acid Reflux 11/07 Last Documented On 4 2:37PM ; [facility] History of Heartburn / Acid Reflux 11/07 Last Documented On 4 9:52AM ; [facility], [facility] History of Irregular Heartbeat 4 Last Documented On 4 9:52AM ; [facility] History of Sleep Apnea 11/08/2023 Last Documented On 4 9:52AM ; [facility] No recent immunization for flu 2 Last Documented On 4 2:37PM ; [facility] No recent immunization for pneumococcal pneumonia 02/01/2022 Last Documented On 4 2:37PM ; [facility] Family History Includes: Family History addressed during this encounter Description Last Updated No significant family history 02/01/2022 Last Documented On 4 2:37PM ; [facility] Review of Systems Includes: Review of Systems from this encounter Systemic: No symptoms. Psychological: Anxiety and depression. Mental Status Includes: Mental Status from this encounter Description Anxiety Functional Status Includes: Functional Status from this encounter No Functional Status Recorded Physical Exam Includes: Physical Exam from this encounter Allergies Includes: Active Allergies Substance Type Reaction Onset Date Resolved Date Statu s Penicillin G Benzathine Allergy 02/02/2022 Active Last Documented On 4 2:46PM ; [facility] Encounters Encounter Provider Location Date Check-In Time Check-Out Time Diagnosis Physician Specified Jose Card MD [facility] 11/08/19 24 2:32PM 3:16PM Overweight Insurance Includes: Active Insurance Policies Plan Name Member ID Group # Subscriber Relationship Effect valarie Dates 1 - [facility] [id number] Douglas Lopez Harrison Self 02/28/2022 - Unknown Clinical Notes Includes: Clinical Notes from this encounter * Progress note Date Encounter Last Documented by 11/08/2023 Physician Specified Last javier arevalo on 11/11/2023; 9:52 AM, Jose Card MD; [facility] Active Problems & Conditions - Foot Pain (Soft Tissue) - Joint Pain in the Right Hip - Joint Pain in the Right Knee - Lower Back Pain Subjective Have you ever tried physical therapy for this and how long and where? No What injections have you tried for this pain? No Last injection date? Have you had prior surgery on this area? 2005 ACL Reconstrustion What medications have you tried for this pain? Ice, ibuprofen Have you tried to lose weight? No Chief Complaint The Chief Complaint is: Right knee pain. Referred Here Referred by. History of Present Illness Douglas Harrison is a 53 year old male. - Allergy list reviewed - Problem list reviewed - Medication list reviewed - - Review of medications documented Patient with recurrent medial joint line pain effusions intermittent locking and clicking after twisting injury few months ago not improving with anti- inflammatories rest activity modification he did have ACL reconstruction that same knee back in 2004 but has done well since then Current Medication - Azithromycin 250 MG Oral Tablet 5 days, 0 refills - Bisoprolol Fumarate 10 MG Oral Tablet 90 days, 0 refills - EQL Omeprazole 20 MG Tablet Delayed Release 0 days, 0 refills - Fluticasone Propionate 50 MCG/ACT Nasal Suspension 30 days, 0 refills - FreeStyle Laci 3 Sensor Miscellaneous 84 days, 0 refills - Jardiance 25 MG Oral Tablet 90 days, 0 refills - methylPREDNISolone 4 MG Oral Tablet Therapy Pack 6 days, 0 refills - Ozempic (0.25 or 0.5 MG/DOSE) 2 MG/3ML Subcutaneous Solution Pen-injector 56 days, 0 refills - Pantoprazole Sodium 40 MG Oral Tablet Delayed Release 90 days, 0 refills - Paxlovid (300/100) 20 x 150 MG & 10 x 100MG Oral Tablet Therapy Pack 5 days, 0 refills - Toujeo SoloStar 300 UNIT/ML Subcutaneous Solution Pen-injector 84 days, 0 refills Past Medical/Surgical History Reported: Immunization History: No recent immunization for flu and not for pneumococcal pneumonia. Diagnoses: Irregular Heartbeat Sleep Apnea Heartburn / Acid Reflux Heartburn / Acid Reflux. Diabetes mellitus Diabetes mellitus. Depression Surgical: - Hernia repair - Previous Fractures - History of Arthroscopy Social History Not a current smoker. Current diet: No recent change in diet. Caffeine use: Caffeine use. Tobacco use: No tobacco use. Tobacco non-user. Smoking status: Never smoker. Alcohol: Not using alcohol. Drug Use: Not using drugs. Habits: Not exercising regularly. Allergies - Penicillin G Benzathine Family History No significant family history Review Of Systems Systemic: No symptoms. Psychological: Anxiety and depression. Physical Findings - Vitals taken 11/08/2023 02:51 pm bna Height 75 in 60 - 80 Weight 210 lbs 125 - 225 Body Mass Index 26.2 kg/m2 Body Surface Area 2.2 m2 Right knee shows trace effusion tenderness over the medial joint line with meniscal click on positive Francisco's finding in Apley's grind test also positive for medial joint line pain anterior posterior drawer negative varus valgus stress testing normal normal gait today range motion is 0-125 with good stability pain on deep flexion Tests X-rays show good joint space in all 3 compartments of the right knee three views Assessment - Overweight Recurrent medial compartment mechanical symptoms after twisting injury remote history of ACL reconstruction and medial meniscus repair failed conservative treatment Counseling/Education - Tobacco non-user - Use of tobacco assessment performed - Lose weight Plan StartCited - Overweight Radiology/MRI: MRI Knee Instructions: r knee mri EndCited Recommend right knee MRI to evaluate meniscus and then likely we will need arthroscopy for repair versus resection we will discuss treatment options on return after MRI scan right knee Notes This dictation was done with voice recognition software and may contain errors and omissions. Practice Management Use of tobacco assessment performed Review of medications documented. Care Team - PARVEZ MAYO MD - [id number] CON[employer]
--- OUTSIDE RECORDS SUMMARY | 2024-06-09 09:20 | XMS_ITS | Clinical Summary ---
Author Organization [facility] [place] Address [address] [place] [address] Phone Care Team Providers Care Puppy Trainer Name Role Phone MARIA ESTHER FOWLER, PARVEZ Unavailable [phone] Silvana FOWLER, Navin Unavailable [phone] Reason for Visit and Chief Complaint The Chief Complaint is: lt wrist and thumb pain Problems Includes: Problems addressed during this encounter and other active Problems Current Visit Onset Date Resolved Date Provider Conditio n Status Joint Pain in the Left Wrist 03/28/2024 Jevon Alejandro PA-C Active Last Documented On 5 2:28PM ; [facility] [place] Joint Pain Left Thumb 03/28/2024 Jevon Alejandro PA-C Active Last Documented On 5 2:29PM ; [facility] [place] Past Visits Onset Date Resolved Date Provider Condition Status Joint Pain in the Right Knee 11/08/2023 Jose Card MD Active Last Documented On 4 2:38PM ; [facility] [place] Lower Back Pain 02/01/2022 Douglas Blake PA-C A ctive Last Documented On 2 11:26AM ; [facility] [place] Joint Pain in the Right Hip 02/01/2022 Douglas Blake PA-C Active Last Documented On 2 11:27AM ; [facility] [place] Foot Pain (Soft Tissue) 12/15/2011 Bj Caba od DPM Active Last Documented On 2 1:44PM ; [facility] [place] Plan of Treatment Future Appointments Date Time Location Provi wibler Follow Up 06/27/2024 3:45PM [facility] Alejandro PA-C Last Documented On 5 3:01PM ; [facility] [place] Instructions to patient Lose weight Last Documented On 5 2:29PM ; [facility] [place] Assessments Includes: Assessments from this encounter Findings - Overweight - Last Documented On 03/28/2024 3:04PM ; [facility] [place] Instructions Includes: Instructions from this encounter Instructions to patient Lose weight Last Documented On 5 2:29PM ; [facility] [place] Medical Equipment - Implanted Devices Includes: Current Devices No Medical Equipment Recorded Medications Includes: Medications discussed during this encounter and other current Medications Current Medications (continue as prescribed) methylPREDNISolone 4 MG Oral Tablet Therapy Pack 11/03 Provider: Diagnosis: Last Documented On 4 2:38PM By Sada Jon ; [facility] [place] Ozempic (0.25 or 0.5 MG/DOSE ) 2 MG/3ML Subcutaneous Solution Pen-injector 10/28/2023 Provider: PARVEZ MAYO MD Diagnosis: Last Documented On 4 2:38PM By Sada Jon ; [facility] [place] Pantoprazole Sodium 40 MG Or al Tablet Delayed Release 10/23/2023 Provider: PARVEZ MAYO MD Diagnosis: Last Documented On 4 2:38PM By Sada Jon ; [facility] [place] FreeStyle Laci 3 Sensor Miscellaneous 10/18/2023 Pr ovider: Diagnosis: Last Documented On 4 2:38PM By Sada Jon ; [facility] [place] Paxlovid (300/100) 20 x 150 MG & 10 x 100MG Oral Tablet Therapy Pack 10/03/2023 Provider: PARVEZ MAYO MD Diagnosis: Last Documented On 4 2:38PM By Sada Jon ; [facility] [place] Azithromycin 250 MG Oral Tablet 09/30/2023 Provider: Maryjane Aly PA-C Diagnosis: Last Documented On 4 2:38PM By Sada Jon ; [facility] [place] Toujeo SoloStar 300 UNIT/ML Subcutaneous Solution Pen-injector 09/14/2023 Provider: PARVEZ MAYO MD Diagnosis: Last Documented On 4 2:38PM By Sada Jon ; [facility] [place] Jardiance 25 MG Oral Tablet 08/22/2023 Provider: Yenifer Michele APRN Diagnosis: Last Documented On 4 2:38PM By Sada Jon ; [facility] [place] Fluticasone Propionate 50 MCG/ACT Nasal Suspension Provider: Diagnosis: Last Documented On 4 2:38PM By Sada Jon ; [facility] [place] Bisoprolol Fumarate 10 MG Oral Tablet 08/19/2023 Pro vider: PARVEZ MAYO MD Diagnosis: Last Documented On 4 2:38PM By Sada Jon ; [facility] [place] EQL Omeprazole 20 MG OR TBEC 12/15/2011 Provider: Diagnosis: Last Documented On 2 1:44PM By Humberto Holt User ; [facility] Past Medications on file Naproxen 500 MG OR TABS 11/10/2011 - 12/10/2011 Provid er: Bj Magana DPM Diagnosis: take with food/bgo pharm/ab Last Documented On 2 3:45PM By Humberto 2 User ; [facility] [place] Medrol (Tan) 4 MG OR TABS 11/10/2011 - 12/01/2011 Prov ider: Bj Magana DPYeny Diagnosis: ab Last Documented On 2 3:44PM By Humberto 2 User ; [facility] [place] Medications Administered Includes: Administered Medications from this encounter No Administered Medications Recorded Vital Signs Includes: Vital Signs from this encounter Vital Name 03/28/2024 02:29P Height (in) 75 Weight (lb) 210 Body Mass Index 26.2 Body Surface Area 2.2 Note: mg Last Documented: On 03/28/2024 2:29PM ; [facility] [place] Results Includes: Results discussed during this encounter No Results Recorded For Specified Dates History of Present Illness Includes: History of Present Illness from this encounter JAEL Harrison is a 53 year old male. - Allergy list reviewed - Problem list reviewed - Medication list reviewed - - Review of medications documented 53-year-old male here for evaluation of his left base of thumb pain. He was had symptoms for a year. No trauma or mechanism. He locates the pain near the 1st CMC. Worse with gripping and pinching activities. No numbness and tingling in the hand. He was tried some [id number] anti-inflammatories without satisfactory relief. Social History Description Last Updated No recent change in diet 05/12/2022 Last Documented On 5 2:29PM ; [facility] [place] Not a current smoker. 05/12/2022 Last Documented On 5 2:29PM ; [facility] [place] Not using alcohol 05/12/2022 Last Documented On 5 2:29PM ; [facility] [place] Not using drugs 05/12/2022 Last Documented On 5 2:29PM ; [facility] [place] Tobacco non-user 02/01/2022 Last Documented On 5 2:29PM ; [facility] [place] Caffeine use 02/01/2022 Last Documented On 5 2:29PM ; [facility] [place] Not exercising regularly 02/01/2022 Last Documented On 5 2:29PM ; [facility] [place] No tobacco use 02/14/2012 Last Documented On 5 2:29PM ; [facility] [place] Smoking status : Never smoked/ Recode: 4 02/14/2012 Last Documented On 5 2:29PM ; [facility] [place] Procedures and Surgical History Includes: Procedures from this encounter Procedures Code Diagnosis Performing Provider Service Location Service Date DRAIN/INJECT, JOINT/BURSA (LEFT) Unil primary osteoarth of first carpometacarp joint, l hand Jevon Alejandro PA-C [facility] 03/28/2024 Last Documented On 5 1:39PM ; [facility] [place] Injection, betamethasone acetate 6mg per cc and betamethason J0702 Unil primary osteoarth of first carpometacarp joint, l hand Jevon Alejandro PA-C [facility] 03/28/2024 Last Documented On 5 1:39PM ; [facility] [place] X-RAY EXAM OF FINGER(S) 2-3 VIEWS (LEFT) 55914 Unil primary osteoarth of first carpometacarp joint, l hand Jevon Alejandro PA-C [facility] 03/28/2024 Last Documented On 5 1:39PM ; [facility] [place] use of tobacco assessment performed 1000F Last Documented On 5 2:29PM ; [facility] [place] review of medications documented 1160F Last Documented On 5 2:29PM ; [facility] [place] Surgical History Last Updated History of hernia repair 02/01/2022 Last Documented On 5 2:29PM ; [facility] History of History of Arthroscopy 2021 Last Documented On 5 2:29PM ; [facility] History of Previous Fractures 02/01/2022 Last Documented On 5 2:29PM ; [facility] [place] Medical History Includes: Medical History addressed during this encounter Description Last Updated History of depression 11/08/2023 Last Documented On 5 2:29PM ; [facility] History of diabetes mellitus 11/08/2023 Last Documented On 5 2:29PM ; [facility] History of Heartburn / Acid Reflux 11/07 Last Documented On 5 2:29PM ; [facility] History of Irregular Heartbeat 4 Last Documented On 5 2:29PM ; [facility] History of Sleep Apnea 11/08/2023 Last Documented On 5 2:29PM ; [facility] [place] No recent immunization for flu 2 Last Documented On 5 2:29PM ; [facility] No recent immunization for pneumococcal pneumonia 02/01/2022 Last Documented On 5 2:29PM ; [facility] [place] Family History Includes: Family History addressed during this encounter Description Last Updated No significant family history 02/01/2022 Last Documented On 5 2:29PM ; [facility] [place] Review of Systems Includes: Review of Systems [...] Active Last Documented On 4 2:46PM ; [facility] [place] Encounters Encounter Provider Location Date Check-In Time Check-Out Time Diagnosis Physician Specified Jevon Alejandro PA-C [facility] 03/28/19 25 2:16PM 2:52PM Overweight Insurance Includes: Active Insurance Policies Plan Name Member ID Group # Subscriber Relationship Effect valarie Dates 1 - [facility] [place] [id number] Douglas Harrison Self 02/28/2022 - Unknown Clinical Notes Includes: Clinical Notes from this encounter * Progress note Date Encounter Last Documented by 03/28/2024 Physician Specified Last tatumumen mickey on 03/28/2024; 3:04 PM, Jevon Alejandro PA-C; [facility] [place] Active Problems & Conditions - Foot Pain (Soft Tissue) - Joint Pain in the Left Wrist - Joint Pain in the Right Hip - Joint Pain in the Right Knee - Joint Pain Left Thumb - Lower Back Pain Chief Complaint The Chief Complaint is: Lt wrist and thumb pain. Referred Here Referred by. History of Present Illness Douglas Harrison is a 53 year old male. - Allergy list reviewed - Problem list reviewed - Medication list reviewed - - Review of medications documented 53-year-old male here for evaluation of his left base of thumb pain. He was had symptoms for a year. No trauma or mechanism. He locates the pain near the 1st CMC. Worse with gripping and pinching activities. No numbness and tingling in the hand. He was tried some [id number]-law-pyjyifg anti-inflammatories without satisfactory relief. Current Medication - Azithromycin 250 MG Oral [...] Irregular Heartbeat Sleep Apnea Heartburn / Acid Reflux. Diabetes mellitus. Depression Surgical: - Hernia repair [...] and depression. Physical Findings - Vitals taken 03/28/2024 02:29 pm mg Height 75 in Weight 210 lbs Body Mass Index 26.2 kg/m2 Body Surface Area 2.2 m2 PHYSICAL EXAM: CONSTITUTIONAL: Well developed, well groomed, well nourished patient in no acute distress who appears stated age, height and weight. PSYCHIATRIC: The patient is alert and oriented to person, place, date and situation. Mood and affect are normal for current situation. NEUROLOGICAL: Sensation normal bilateral upper and lower extremities. LYMPHATIC: No pitting edema noted in the lower extremities. SKIN: No lesions noted on upper or lower extremities. Skin is dry, warm and with normal turgor. VASCULAR: No swelling in upper or lower extremities other than described below in extremity exam. Pulses normal in both upper (radial) extremities. GAIT AND STATION: Normal gait without assistive devices. Station normal. LEFT WRIST/HAND: Able to make a full composite fist Able to fully flex and extend all fingers Hand is warm and well perfused Sensation intact to light touch distally in all nerve distributions Carpal compression test is negative Tinel of the median nerve at the wrist is negative There is no triggering of digits CMC is tender to palpation. CMC grind is positive for pain and crepitus There is no tenderness to palpation over the dorsal compartments. Finklesteins is negative Flexion: 90 degrees Extension: 70 degrees Pronation: 90 degrees Supination: 90 degrees Strength: 5/5 wrist flexion, 5/5 extension, 5/5 supination, 5/5 pronation. User Defined 5 Three-view x-ray of the left thumb shows no acute bony abnormality. There is moderate 1st CMC degenerative changes. 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 Long conversation with the patient about this problem. We discussed nonoperative and operative management. Today I am recommending a trial of meloxicam to be taken as needed, he understands not to combine this with any other anti-inflammatories. We will also recommend a comfort cool brace to be used as needed with activity. Also recommend a left 1st CMC steroid injection. The patient agrees to proceed. He will follow up in 3 months for clinical recheck. The risks and benefits of a left CMC injection were discussed. I answered all of the patient's questions and they verbally consented to the procedure. The skin over the CMC joint was prepped with isopropyl alcohol and allowed to dry. Utilizing a sterile needle, I injected 1/2 cc of betamethasone and 1/2 cc of 1% lidocaine into the joint. The needle was withdrawn and the injection site was dressed with a sterile Band- Aid. The patient tolerated the procedure well without any apparent complication. Post-injection instructions were discussed. Assessment - Overweight Counseling/Education - Tobacco non-user - Use of tobacco assessment performed - Lose weight Notes This dictation was done with voice recognition software and may contain errors and omissions. Practice Management Use of tobacco assessment performed Review of medications documented. Care Team - PARVEZ MAYO MD - GENERAL MAINTENANCE MECHANIC
--- OUTSIDE RECORDS SUMMARY | 2024-06-09 09:20 | XMS_ITS ---
Care Plan - [facility], [facility] Created on: June 09, 2024 Douglas Harrison : 1970 Sex: Male Author Organization [facility] Address [address] [place] [address] Phone Care Team Providers Care Provider Relations Manager Name Role Phone MARIA ESTHER FOWLER, PARVEZ Unavailable [phone] Silvana FOWLER, Navin Unavailable [phone]
--- OUTSIDE RECORDS SUMMARY | 2024-06-09 09:20 | XMS_ITS | Clinical Summary ---
Author Organization [facility] Address [address] [place] [address] Phone Care Team Providers Care Project Management Director Name Role Phone MARIA ESTHER FOWLER, PARVEZ Unavailable [phone] Silvana FOWLER, Navin Unavailable [phone] Reason for Visit and Chief Complaint BRACE FITTING Problems Includes: Problems addressed during this encounter and other active Problems All Visits Onset Date Resolved Date Provider Condition S tatus Joint Pain in the Left Wrist 03/28/2024 Jevon Alejandro PA-C Active Last Documented On 5 2:28PM ; [facility], [facility] Joint Pain Left Thumb 03/28/2024 Jevon Alejandro PA-C Active Last Documented On 5 2:29PM ; [facility], [facility] Joint Pain in the Right Knee 11/08/2023 Jose Card MD Active Last Documented On 4 2:38PM ; [facility], [facility] Lower Back Pain 02/01/2022 Douglas Blake PA-C A ctive Last Documented On 2 11:26AM ; [facility], [facility] Joint Pain in the Right Hip 02/01/2022 Douglas Blake PA-C Active Last Documented On 2 11:27AM ; [facility] Foot Pain (Soft Tissue) 12/15/2011 Bj Caba od DPM Active Last Documented On 2 1:44PM ; [facility] Plan of Treatment Future Appointments Date Time Location Provi wilber Follow Up 06/27/2024 3:45PM [facility] Alejandro PA-C Last Documented On 5 3:01PM ; [facility] Assessments Includes: Assessments from this encounter No Assessments Recorded Medical Equipment - Implanted Devices Includes: Current Devices No Medical Equipment Recorded Medications Includes: Medications discussed during this encounter and other current Medications Current Medications (continue as prescribed) methylPREDNISolone 4 MG Oral Tablet Therapy Pack 11/03 Provider: Diagnosis: Last Documented On 4 2:38PM By Sada Jon ; [facility] Ozempic (0.25 or 0.5 MG/DOSE ) 2 MG/3ML Subcutaneous Solution Pen-injector 10/28/2023 Provider: PARVEZ MAYO MD Diagnosis: Last Documented On 4 2:38PM By Sada Jon ; [facility], [facility] Pantoprazole Sodium 40 MG Or al Tablet Delayed Release 10/23/2023 Provider: PARVEZ MAYO MD Diagnosis: Last Documented On 4 2:38PM By Sada Jon ; [facility], [facility] FreeStyle Laci 3 Sensor Miscellaneous 10/18/2023 Pr ovider: Diagnosis: Last Documented On 4 2:38PM By Sada Jon ; [facility], [facility] Paxlovid (300/100) 20 x 150 MG & 10 x 100MG Oral Tablet Therapy Pack 10/03/2023 Provider: PARVEZ MAYO MD Diagnosis: Last Documented On 4 2:38PM By Sada Jon ; [facility] Azithromycin 250 MG Oral Tablet 09/30/2023 Provider: Maryjane Aly PA-C Diagnosis: Last Documented On 4 2:38PM By Sada Jon ; [facility], [facility] Toujeo SoloStar 300 UNIT/ML Subcutaneous Solution Pen-injector 09/14/2023 Provider: PARVEZ MAYO MD Diagnosis: Last Documented On 4 2:38PM By Sada Jon ; [facility] Jardiance 25 MG Oral Tablet 08/22/2023 Provider: Yenifer Michele APRN Diagnosis: Last Documented On 4 2:38PM By Sada Jon ; [facility] Fluticasone Propionate 50 MCG/ACT Nasal Suspension Provider: Diagnosis: Last Documented On 4 2:38PM By Sada Jon ; [facility] Bisoprolol Fumarate 10 MG Oral Tablet 08/19/2023 Pro vider: PARVEZ MAYO MD Diagnosis: Last Documented On 4 2:38PM By Sada Jon ; [facility], [facility] EQL Omeprazole 20 MG OR TBEC 12/15/2011 Provider: Diagnosis: Last Documented On 2 1:44PM By Humberto Holt User ; [facility] Medications Administered Includes: Administered Medications from this encounter No Administered Medications Recorded Results Includes: Results discussed during this encounter No Results Recorded For Specified Dates History of Present Illness Includes: History of Present Illness from this encounter No History of Present Illness Recorded Social History No Social History Recorded - Smoking Status Unknown Procedures and Surgical History Includes: Procedures from this encounter Procedures Code Diagnosis Performing Provider Service Location Service Date CMC Comfort Cool Splint [id number] Unil primary osteoarth of first carpometacarp joint, l hand Jevon Alejandro PA-C [facility] 03/28/2024 Last Documented On 5 1:40PM ; [facility] Medical History Includes: Medical History addressed during this encounter No Medical History Recorded Family History Includes: Family History addressed during this encounter No Family History Recorded Review of Systems Includes: Review of Systems from this encounter No Review of Systems Recorded Mental Status Includes: Mental Status from this encounter No Mental Status Recorded Functional Status Includes: Functional Status from this encounter No Functional Status Recorded Physical Exam Includes: Physical Exam from this encounter No Physical Exam Recorded Allergies Includes: Active Allergies Substance Type Reaction Onset Date Resolved Date Statu s Penicillin G Benzathine Allergy 02/02/2022 Active Last Documented On 4 2:46PM ; [facility] Encounters Encounter Provider Location Date Check-In Time Check-Out Time Diagnosis BRACE FITTING Jevon Alejandro PA-C [facility] 03/28/2024 11:16AM 11:59PM Insurance Includes: Active Insurance Policies Plan Name Member ID Group # Subscriber Relationship Effect valarie Dates 1 - [facility] [id number] Douglas Lopez Harrison Self 02/28/2022 - Unknown Clinical Notes Includes: Clinical Notes from this encounter No Clinical Notes Recorded
--- OUTSIDE RECORDS SUMMARY | 2024-06-09 09:20 | XMS_ITS ---
Author Organization [facility] Address [address] [place] [address] Phone Care Team Providers Care User Experience Architect Name Role Phone MARIA ESTHER FOWLER, PARVEZ Unavailable [phone] Silvana FOWLER, Navin Unavailable [phone] Reason for Referral Date Encounter Description Provider Reason for Referral 02/01/22 WORK COMP NEW PATIENT Douglas Blake PA-C Referral To Physician Problems Includes: Active, inactive, and resolved Problems All Visits Onset Date Resolved Date Provider Condition S tatus Joint Pain in the Left Wrist 03/28/2024 Jevon Alejandro PA-C Active Last Documented On 5 2:28PM ; [facility] Joint Pain Left Thumb 03/28/2024 Jevon Alejandro PA-C Active Last Documented On 5 2:29PM ; [facility] Joint Pain in the Right Knee 11/08/2023 Jose Card MD Active Last Documented On 4 2:38PM ; [facility] Lower Back Pain 02/01/2022 Douglas Blake PA-C A ctive Last Documented On 2 11:26AM ; [facility] Joint Pain in the Right Hip 02/01/2022 Douglas Blake PA-C Active Last Documented On 2 11:27AM ; [facility] Foot Pain (Soft Tissue) 12/15/2011 Bj Caba od DPM Active Last Documented On 2 1:44PM ; [facility] Plan of Treatment Pending Tests Order Diagnosis Results Due Ordering P rovider Radiology - MRI MRI Knee Overweight 11/22/23 Jose zavala MD Last Documented On 4 9:52AM ; [facility] Referrals To Diagnosis Consult with Orthopedic Justin Kevin MD Note: from [facility] Last Documented On 3 12:34PM ; [facility] Future Appointments Date Time Location Provi wilber Follow Up 06/27/2024 3:45PM [facility] [place] Jevon Alejandro PA-C Last Documented On 5 3:01PM ; [facility] Instructions to patient Lose weight Last Documented On 5 2:29PM ; [facility] Lose weight Last Documented On 4 2:47PM ; [facility] Lose weight Last Documented On 4 2:37PM ; [facility] Lose weight Last Documented On 3 10:05AM ; [facility] Lose weight Last Documented On 3 1:21PM ; [facility] Lose weight Last Documented On 3 9:15AM ; [facility] Lose weight Last Documented On 2 11:31AM ; [facility] Assessments Includes: Assessments for all patient encounters Findings Encounter Date Overweight Physician Specified with Jevon Alejandro PA-C 03/28/2024 Last Documented On 5 3:04PM ; [facility] Overweight Follow Up with Jose Card MD 0 11/24/2023 Last Documented On 4 3:47PM ; [facility] Overweight Physician Specified with Jose Card MD 11/08/2023 Last Documented On 4 9:52AM ; [facility] Overweight WC FOLLOW UP/EST with Douglas mcintyre PA-C 03/16/2022 Last Documented On 4 4:39PM ; [facility] Overweight WC FOLLOW UP/EST with Douglas mcintyre PA-C 03/03/2022 Last Documented On 4 3:16PM ; [facility] Instructions Includes: Instructions for all patient encounters Instructions to patient Lose weight Last Documented On 5 2:29PM ; [facility] Lose weight Last Documented On 4 2:47PM ; [facility] Lose weight Last Documented On 4 2:37PM ; [facility] Lose weight Last Documented On 3 10:05AM ; [facility] Lose weight Last Documented On 3 1:21PM ; [facility] Lose weight Last Documented On 3 9:15AM ; [facility] Lose weight Last Documented On 2 11:31AM ; [facility] Medical Equipment - Implanted Devices Includes: Current and historical Devices No Medical Equipment Recorded Medications Includes: Current and historical Medications Current Medications (continue as prescribed) methylPREDNISolone 4 MG Oral Tablet Therapy Pack 11/03 Provider: Diagnosis: Last Documented On 4 2:38PM By Sada Jon ; [facility] Ozempic (0.25 or 0.5 MG/DOSE ) 2 MG/3ML Subcutaneous Solution Pen-injector 10/28/2023 Provider: PARVEZ MAYO MD Diagnosis: Last Documented On 4 2:38PM By Sada Jon ; [facility] Pantoprazole Sodium 40 MG Or al Tablet Delayed Release 10/23/2023 Provider: PARVEZ MAYO MD Diagnosis: Last Documented On 4 2:38PM By Sada Jon ; [facility] FreeStyle Laci 3 Sensor Miscellaneous 10/18/2023 Pr ovider: Diagnosis: Last Documented On 4 2:38PM By Sada Jon ; [facility] Paxlovid (300/100) 20 x 150 MG & 10 x 100MG Oral Tablet Therapy Pack 10/03/2023 Provider: PARVEZ MAYO MD Diagnosis: Last Documented On 4 2:38PM By Sada Jon ; [facility], [facility] Azithromycin 250 MG Oral Tablet 09/30/2023 Provider: Maryjane Aly PA-C Diagnosis: Last Documented On 4 2:38PM By Sada Jon ; [facility], [facility] Tousooo SoloStar 300 UNIT/ML Subcutaneous Solution Pen-injector 09/14/2023 Provider: PARVEZ MAYO MD Diagnosis: Last Documented On 4 2:38PM By Sada Jon ; [facility], [facility] Jardiance 25 MG Oral Tablet 08/22/2023 Provider: Yenifer Michele APRN Diagnosis: Last Documented On 4 2:38PM By Sada Jon ; [facility], [facility] Fluticasone Propionate 50 MCG/ACT Nasal Suspension Provider: Diagnosis: Last Documented On 4 2:38PM By Sada Jon ; [facility], [facility] Bisoprolol Fumarate 10 MG Oral Tablet 08/19/2023 Pro vider: PARVEZ MAYO MD Diagnosis: Last Documented On 4 2:38PM By Sada Jon ; [facility], [facility] EQL Omeprazole 20 MG OR TBEC 12/15/2011 Provider: Diagnosis: Last Documented On 2 1:44PM By Humberto 4 User ; [facility], [facility] Past Medications on file Naproxen 500 MG OR TABS 11/10/2011 - 12/10/2011 Provid er: Bj Magana DPM Diagnosis: take with food/bgo pharm/ab Last Documented On 2 3:45PM By Humberto 2 User ; [facility], [facility] Medrol (Tan) 4 MG OR TABS 11/10/2011 - 12/01/2011 Prov ider: Bj Magana DPM Diagnosis: ab Last Documented On 2 3:44PM By Humberto 2 User ; [facility], [facility] Medications Administered Includes: Administered Medications in patient's chart No Administered Medications Recorded Vital Signs Includes: Vital Signs from 06/10/2023 through 06/09/2024 Vital Name 03/28/2024 02:29P 11/24/2023 02:46P 11/07 02:51P Height (in) 75 75 75 Weight (lb) 210 210 210 Body Mass Index 26.2 26.2 26.2 Body Surface Area 2.2 2.2 2.2 Note: mg kf bna Last Documented: On 03/28/2024 2:29PM ; [facility] On 11/24/2023 2:47PM ; [facility] On 11/08/2023 2:51PM ; [facility] Results Includes: Results from 06/10/2023 through 06/09/2024 No Results Recorded For Specified Dates History of Present Illness History of Present Illness not supported for this document type No History of Present Illness Recorded Social History Description Last Updated No recent change in diet 05/12/2022 Last Documented On 3 11:23AM ; [facility] Not a current smoker. 05/12/2022 Last Documented On 3 11:23AM ; [facility] Not using alcohol 05/12/2022 Last Documented On 3 11:23AM ; [facility] Not using drugs 05/12/2022 Last Documented On 3 11:23AM ; [facility] Tobacco non-user 02/01/2022 Last Documented On 2 10:52AM ; [facility] Caffeine use 02/01/2022 Last Documented On 2 10:52AM ; [facility] Not exercising regularly 02/01/2022 Last Documented On 2 10:52AM ; [facility] No tobacco use 02/14/2012 Last Documented On 4 10:59AM ; [facility] Smoking status : Never smoked/ Recode: 4 02/14/2012 Last Documented On 4 10:59AM ; [facility], [facility] Procedures and Surgical History Includes: Procedures from 06/10/2023 through 06/09/2024 Procedures Code Diagnosis Performing Provider Service Location Service Date X-RAY EXAM OF FINGER(S) 2-3 VIEWS (LEFT) 19036 Unil primary osteoarth of first carpometacarp joint, l hand Jevon Alejandro PA-C [facility] [place] 03/28/2024 Last Documented On 5 1:39PM ; [facility] Injection, betamethasone acetate 6mg per cc and betamethason J0702 Unil primary osteoarth of first carpometacarp joint, l hand Jevon Javonconchita [facility] 03/28/2024 Last Documented On 5 1:39PM ; [facility] DRAIN/INJECT, JOINT/BURSA (LEFT) Unil primary osteoarth of first carpometacarp joint, l [facility] 03/28/2024 Last Documented On 5 1:39PM ; [facility] A4466 Unil primary osteoarth of first [facility]ometacarp joint[facility] 03/28/2024 Last Documented On 5 1:40PM ; [facility] MRI JNT OF LWR EXTRE W/O DYE (RIGHT) 22252 Pain in right knee Jose Card MD [facility] 11/15/2023 Last Documented On 4 12:38PM ; [facility] X-RAY EXAM OF KNEE 1 OR 2 VIEWS (RIGHT) 15663 Unilateral primary osteoarthritis, right knee Jose Card MD [facility] 11/08/2023 Last Documented On 4 11:03AM ; [facility] Injection, betamethasone acetate 6mg per cc and betamethason J0702 Unilateral primary osteoarthritis, right knee Jose Card MD [facility] 11/08/2023 Last Documented On 4 11:03AM ; [facility] DRAIN/INJECT, JOINT/BURSA (RIGHT) Unilateral primary osteoarthritis, right knee Jose Card MD [facility] 11/08/2023 Last Documented On 4 11:03AM ; [facility] Surgical History Last Updated History of hernia repair 02/01/2022 Last Documented On 2 10:52AM ; [facility] History of History of Arthroscopy 2021 Last Documented On 2 10:52AM ; [facility] History of Previous Fractures 02/01/2022 Last Documented On 2 10:52AM ; [facility] Medical History Includes: Medical History in patient's chart Description Last Updated History of depression 11/08/2023 Last Documented On 4 9:52AM ; [facility] History of diabetes mellitus 11/08/2023 Last Documented On 4 9:52AM ; [facility] History of Heartburn / Acid Reflux 11/07 Last Documented On 4 9:52AM ; [facility] History of Irregular Heartbeat 4 Last Documented On 4 9:52AM ; [facility] History of Sleep Apnea 11/08/2023 Last Documented On 4 9:52AM ; [facility] No recent immunization for flu 2 Last Documented On 2 10:52AM ; [facility] No recent immunization for pneumococcal pneumonia 02/01/2022 Last Documented On 2 10:52AM ; [facility] Family History Includes: Family History in patient's chart Description Last Updated No significant family history 02/01/2022 Last Documented On 2 10:52AM ; [facility] Review of Systems Review of Systems not supported for this document type No Review of Systems Recorded Mental Status Description Anxiety Functional Status No Functional Status Recorded Physical Exam Physical Exam not supported for this document type No Physical Exam Recorded Allergies Includes: Active, inactive, and resolved Allergies Substance Type Reaction Onset Date Resolved Date Statu s Penicillin G Benzathine Allergy 02/02/2022 Active Last Documented On 4 2:46PM ; [facility] Encounters Includes: Encounters from 06/10/2023 through 06/09/2024 Encounter Provider Location Date Check-In Time Check-Out Time Diagnosis Physician Specified Jevon Alejandro PA-C [facility] 03/28/19 25 2:16PM 2:52PM Overweight [employer] Jevno Alejandro PA-C [facility] 03/28/19 25 11:16AM 11:59PM Follow Up Jose Card MD [facility] 11/24/19 24 2:45PM 3:05PM Overweight MRI [facility] 11/15/19 3:18PM 3:43PM Physician Specified Jose Card MD [facility] [place] 11/08/19 2:32PM 3:16PM Overweight Insurance Includes: Active Insurance Policies Plan Name Member ID Group # Subscriber Relationship Effect valarie Dates 1 - [facility] [id number] Douglas Harrison Self 02/28/2022 - Unknown Clinical Notes Includes: Signed Clinical Notes starting from 02/11/2022 * Progress note Date Encounter Last Documented by 03/28/2024 Physician Specified Last documen mickey on 03/28/2024; 3:04 PM, Jevon Alejandro PA-C; [facility] Active Problems & Conditions - [...] in the hand. He was tried some [id number] anti-inflammatories without satisfactory relief. Current Medication - [...] Care Team - PARVEZ MAYO MD - FISHER OYSTER * Progress note Date Encounter Last Documented by 11/24/2023 Follow Up Last documented on 11/24/2023; 3:47 PM, Jose Card MD; [facility] Active Problems & Conditions - Foot Pain (Soft Tissue) - Joint Pain in the Right Hip - Joint Pain in the Right Knee - Lower Back Pain Chief Complaint The Chief Complaint is: Right knee pain. Referred Here Referred by. History of Present Illness Douglas Harrison is a 53 year old male. - Allergy list reviewed - Problem list reviewed - Medication list reviewed - - Review of medications documented Follow up right knee pain patient continues to have mechanical locking which causes need to give way and pain over the medial joint line we reviewed the MRI which shows a fairly large loose body and degenerative type complex posterior horn medial meniscus tear with minimal degenerative change medial and patellofemoral compartments having failed conservative treatment continue home mechanical locking episodes with pain he is in favor at this point after discussing options for right knee arthroscopy for removal loose body and partial medial meniscectomy we outlined the details of the operation risks benefits recovery time he would like to proceed with scheduling accordingly in the near future Current Medication - Azithromycin 250 MG Oral [...] and depression. Physical Findings - Vitals taken 11/24/2023 02:46 pm kf Height 75 in 60 - 80 Weight 210 lbs 125 - 225 Body Mass Index 26.2 kg/m2 Body Surface Area 2.2 m2 Right knee mild varus deformity flexion contracture 5- flexion 130 with normal stability varus valgus anterior drawer testing tenderness over the medial joint line meniscal click present trace effusion present no lateral joint line tenderness patellofemoral mild crepitation normal tracking excursion slight antalgic gait right knee Assessment - Overweight Counseling/Education - Tobacco non-user - Use of tobacco assessment performed - Lose weight Plan Follow up right knee pain patient continues to have mechanical locking which causes need to give way and pain over the medial joint line we reviewed the MRI which shows a fairly large loose body and degenerative type complex posterior horn medial meniscus tear with minimal degenerative change medial and patellofemoral compartments having failed conservative treatment continue home mechanical locking episodes with pain he is in favor at this point after discussing options for right knee arthroscopy for removal loose body and partial medial meniscectomy we outlined the details of the operation risks benefits recovery time he would like to proceed with scheduling accordingly in the near future Notes This dictation was done with voice recognition software and may contain errors and omissions. Practice Management Use of tobacco assessment performed Review of medications documented. Care Team - PARVEZ MAYO MD - FISHER OYSTER * Progress note Date Encounter Last Documented by 11/08/2023 Physician Specified Last javier arevalo on 11/11/2023; 9:52 AM, Jose Card MD; [facility], [facility] Active Problems & Conditions - [...] you had prior surgery on this area? 2004 ACL Reconstrustion What medications have you tried [...] Care Team - PARVEZ MAYO MD - FISHER OYSTER
--- OUTSIDE RECORDS SUMMARY | 2024-06-09 09:20 | XMS_ITS | Clinical Summary ---
Author Organization [facility] Address [address] [place] [address] Phone Care Team Providers Care Information Resource Consultant Name Role Phone MARIA ESTHER FOWLER, PARVEZ Unavailable [phone] Silvana FOWLER, Willcoxjude Unavailable [phone] Reason for Visit and Chief Complaint MRI Problems Includes: Problems addressed during this encounter and other active Problems All Visits Onset Date Resolved Date Provider Condition S tatus Joint Pain in the Left Wrist 03/28/2024 Jevon Alejandro PA-C Active Last Documented On 5 2:28PM ; [facility] Joint Pain Left Thumb 03/28/2024 Jevon Alejandro PA-C Active Last Documented On 5 2:29PM ; [facility] Joint Pain in the Right Knee 11/08/2023 Jose Card MD Active Last Documented On 4 2:38PM ; [facility] Lower Back Pain 02/01/2022 Douglas Blake PA-C A ctive Last Documented On 2 11:26AM ; [facility] Joint Pain in the Right Hip 02/01/2022 Douglas Blake PA-C Active Last Documented On 2 11:27AM ; [facility] Foot Pain (Soft Tissue) 12/15/2011 Bj Caba od DPM Active Last Documented On 2 1:44PM ; [facility], [facility] Plan of Treatment Future Appointments Date Time Location Provi wilber Follow Up 06/27/2024 3:45PM [facility] [id number] Alejandro PA-C Last Documented On 5 3:01PM ; [facility] Assessments Includes: Assessments from this encounter No Assessments Recorded Medical Equipment - Implanted Devices Includes: Current Devices No Medical Equipment Recorded Medications Includes: Medications discussed during this encounter and other current Medications Current Medications (continue as prescribed) methylPREDNISolone 4 MG Oral Tablet Therapy Pack 11/03 Provider: Diagnosis: Last Documented On 4 2:38PM By Sada Jon ; [facility] Ozempic (0.25 or 0.5 MG/DOSE ) 2 MG/3ML Subcutaneous Solution Pen-injector 10/28/2023 Provider: PARVEZ MAYO MD Diagnosis: Last Documented On 4 2:38PM By Sada Jon ; [facility] Pantoprazole Sodium 40 MG Or al Tablet Delayed Release 10/23/2023 Provider: PARVEZ MAYO MD Diagnosis: Last Documented On 4 2:38PM By Sada Jon ; [facility] FreeStyle Laci 3 Sensor Miscellaneous 10/18/2023 Pr ovider: Diagnosis: Last Documented On 4 2:38PM By Sada Jon ; [facility] Paxlovid (300/100) 20 x 150 MG & 10 x 100MG Oral Tablet Therapy Pack 10/03/2023 Provider: PARVEZ MAYO MD Diagnosis: Last Documented On 4 2:38PM By Sada Jon ; [facility] Azithromycin 250 MG Oral Tablet 09/30/2023 Provider: Maryjane Aly PA-C Diagnosis: Last Documented On 4 2:38PM By Sada Jon ; [facility] Toujeo SoloStar 300 UNIT/ML Subcutaneous Solution Pen-injector 09/14/2023 Provider: PARVEZ MAYO MD Diagnosis: Last Documented On 4 2:38PM By Sada Jon ; [facility] Jardiance 25 MG Oral Tablet 08/22/2023 Provider: Yenifer Michele APRN Diagnosis: Last Documented On 4 2:38PM By Sada Jon ; [facility] Fluticasone Propionate 50 MCG/ACT Nasal Suspension Provider: Diagnosis: Last Documented On 4 2:38PM By Sada Jon ; [facility] Bisoprolol Fumarate 10 MG Oral Tablet 08/19/2023 Pro vider: PARVEZ MAYO MD Diagnosis: Last Documented On 4 2:38PM By Sada Jon ; [facility] EQL Omeprazole 20 MG OR TBEC 12/15/2011 Provider: Diagnosis: Last Documented On 2 1:44PM By Humberto Holt User ; [facility] Medications Administered Includes: Administered Medications from this [...] Diagnosis Performing Provider Service Location Service Date MRI JNT [facility] W/O DYE (RIGHT) 19044 Pain in right knee Jose Card MD [facility] 11/15/2023 Last Documented On 4 12:38PM ; [facility] Medical History Includes: Medical History addressed during [...] Active Last Documented On 4 2:46PM ; [facility] Encounters Encounter Provider Location Date Check-In Time Check-Out Time Diagnosis MRI [facility] 11/15/2023 3:18PM 3:43PM Insurance Includes: Active Insurance Policies Plan Name Member ID Group # Subscriber Relationship Effect valarie Dates 1 - [facility] [id number] Douglas Lopez Harrison Self 02/28/2022 - Unknown Clinical Notes Includes: Clinical Notes from this encounter No Clinical Notes Recorded
--- OUTSIDE RECORDS SUMMARY | 2024-06-09 09:20 | XMS_ITS | Clinical Summary ---
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 Name Role Phone MARIA ESTHER FOWLER, PARVEZ Unavailable [phone] Silvana FOWLER, Navin Unavailable [phone] Reason for Visit and Chief Complaint The Chief Complaint is: Right knee pain Problems Includes: Problems addressed during this encounter and other active Problems All Visits Onset Date Resolved Date Provider Condition S tatus Joint Pain in the Left Wrist 03/28/2024 Jeovn Alejandro PA-C Active Last Documented On 5 2:28PM ; [facility], [facility] Joint Pain Left Thumb 03/28/2024 Jevon Alejandro PA-C Active Last Documented On 5 2:29PM ; [facility], [facility] Joint Pain in the Right Knee 11/08/2023 Jose Card MD Active Last Documented On 4 2:38PM ; [facility], [facility] Lower Back Pain 02/01/2022 Douglas Blake PA-C A ctive Last Documented On 2 11:26AM ; [facility], [facility] Joint Pain in the Right Hip 02/01/2022 Douglas Blake PA-C Active Last Documented On 2 11:27AM ; [facility], [facility] Foot Pain (Soft Tissue) 12/15/2011 Bj Caba od DPM Active Last Documented On 2 1:44PM ; [facility], [facility] Plan of Treatment Follow up right knee pain patient continues [...] with scheduling accordingly in the near future - Last Documented On 11/24/2023 3:47PM ; [facility], [facility] Pending Tests Order Diagnosis Results Due Ordering Domingo stark Radiology - MRI MRI Knee Overweight 11/22/23 Jose zavala MD Last Documented On 4 9:52AM ; [facility], [facility] Future Appointments Date Time Location Provi wilber Follow Up 06/27/2024 3:45PM [facility] ROSEBUDJostin Alejandro PA-C Last Documented On 5 3:01PM ; [facility], [facility] Instructions to patient Lose weight Last Documented On 4 2:47PM ; [facility], [facility] Assessments Includes: Assessments from this encounter Findings - Overweight - Last Documented On 11/24/2023 3:47PM ; [facility], [facility] Instructions Includes: Instructions from this encounter Instructions to patient Lose weight Last Documented On 4 2:47PM ; [facility], [facility] Medical Equipment - Implanted Devices Includes: Current Devices No Medical Equipment Recorded Medications Includes: Medications discussed during this encounter and other current Medications Current Medications (continue as prescribed) methylPREDNISolone 4 MG Oral Tablet Therapy Pack 11/03 Provider: Diagnosis: Last Documented On 4 2:38PM By Sada Jon ; [facility], [facility] Ozempic (0.25 or 0.5 MG/DOSE ) 2 MG/3ML Subcutaneous Solution Pen-injector 10/28/2023 Provider: PARVEZ MAYO MD Diagnosis: Last Documented On 4 2:38PM By Sada Jon ; [facility], [facility] Pantoprazole Sodium 40 MG Or al Tablet Delayed Release 10/23/2023 Provider: PARVEZ MAYO MD Diagnosis: Last Documented On 4 2:38PM By Sada Jon ; [facility], [facility] FreeStyle Laci 3 Sensor Miscellaneous 10/18/2023 Pr ovider: Diagnosis: Last Documented On 4 2:38PM By Sada Jon ; [facility], [facility] Paxlovid (300/100) 20 x 150 MG & 10 x 100MG Oral Tablet Therapy Pack 10/03/2023 Provider: PARVEZ MAYO MD Diagnosis: Last Documented On 4 2:38PM By Sada Jon ; [facility], [facility] Azithromycin 250 MG Oral Tablet 09/30/2023 Provider: Maryjane Aly PA-C Diagnosis: Last Documented On 4 2:38PM By Sada Jon ; [facility], [facility] Toujeo SoloStar 300 UNIT/ML Subcutaneous Solution Pen-injector 09/14/2023 Provider: PARVEZ MAYO MD Diagnosis: Last Documented On 4 2:38PM By Sada Jon ; [facility], [facility] Jardiance 25 MG Oral Tablet 08/22/2023 Provider: Yenifer Michele APRN Diagnosis: Last Documented On 4 2:38PM By Sada Jon ; [facility], [facility] Fluticasone Propionate 50 MCG/ACT Nasal Suspension Provider: Diagnosis: Last Documented On 4 2:38PM By Sada Jon ; [facility], [facility] Bisoprolol Fumarate 10 MG Oral Tablet 08/19/2023 Pro vider: PARVEZ MAYO MD Diagnosis: Last Documented On 4 2:38PM By Sada Jon ; [facility], [facility] EQL Omeprazole 20 MG OR TBEC 12/15/2011 Provider: Diagnosis: Last Documented On 2 1:44PM By Humberto Holt User ; [facility], [facility] Past Medications on file Naproxen 500 MG OR TABS 11/10/2011 - 12/10/2011 Provid er: Bj Magana DPM Diagnosis: take with food/bgo pharm/ab Last Documented On 2 3:45PM By Humberto 2 User ; [facility], [facility] Medrol (Tan) 4 MG OR TABS 11/10/2011 - 12/01/2011 Prov ider: Bj Magana DPM Diagnosis: ab Last Documented On 2 3:44PM By Paul 2 User ; [facility], [facility] Medications Administered Includes: Administered Medications from this encounter No Administered Medications Recorded Vital Signs Includes: Vital Signs from this encounter Vital Name 11/24/2023 02:46P Height (in) 75 Weight (lb) 210 Body Mass Index 26.2 Body Surface Area 2.2 Note: kf Last Documented: On 11/24/2023 2:47PM ; [facility], [facility] Results Includes: Results discussed during this encounter [...] with scheduling accordingly in the near future Social History Description Last Updated No recent change in diet 05/12/2022 Last Documented On 4 2:47PM ; [facility], [facility] Not a current smoker. 05/12/2022 Last Documented On 4 2:47PM ; [facility], [facility] Not using alcohol 05/12/2022 Last Documented On 4 2:47PM ; [facility], [facility] Not using drugs 05/12/2022 Last Documented On 4 2:47PM ; [facility], [facility] Tobacco non-user 02/01/2022 Last Documented On 4 2:47PM ; [facility], [facility] Caffeine use 02/01/2022 Last Documented On 4 2:47PM ; [facility], [facility] Not exercising regularly 02/01/2022 Last Documented On 4 2:47PM ; [facility], [facility] No tobacco use 02/14/2012 Last Documented On 4 2:47PM ; [facility], [facility] Smoking status : Never smoked/ Recode: 4 02/14/2012 Last Documented On 4 2:47PM ; [facility], [facility] Procedures and Surgical History Includes: Procedures from this encounter Procedures Code Diagnosis Performing Provider Service L ocation Service Date use of tobacco assessment performed 1000F Last Documented On 4 2:47PM ; [facility], [facility] review of medications documented 1160F Last Documented On 4 2:47PM ; [facility], [facility] Surgical History Last Updated History of hernia repair 02/01/2022 Last Documented On 4 2:47PM ; [facility], [facility] History of History of Arthroscopy 2021 Last Documented On 4 2:47PM ; [facility], [facility] History of Previous Fractures 02/01/2022 Last Documented On 4 2:47PM ; [facility], [facility] Medical History Includes: Medical History addressed during this encounter Description Last Updated History of depression 11/08/2023 Last Documented On 4 2:47PM ; [facility], [facility] History of diabetes mellitus 11/08/2023 Last Documented On 4 2:47PM ; [facility], [facility] History of Heartburn / Acid Reflux 11/07 Last Documented On 4 2:47PM ; [facility], [facility] History of Irregular Heartbeat 4 Last Documented On 4 2:47PM ; [facility], [facility] History of Sleep Apnea 11/08/2023 Last Documented On 4 2:47PM ; [facility], [facility] No recent immunization for flu 2 Last Documented On 4 2:47PM ; [facility], [facility] No recent immunization for pneumococcal pneumonia 02/01/2022 Last Documented On 4 2:47PM ; [facility], [facility] Family History Includes: Family History addressed during this encounter Description Last Updated No significant family history 02/01/2022 Last Documented On 4 2:47PM ; [facility] Review of Systems Includes: Review of [...] Active Last Documented On 4 2:46PM ; [facility] Encounters Encounter Provider Location Date Check-In Time Check-Out Time Diagnosis Follow Up Jose Card MD [facility] B 4 2:45PM 3:05PM Overweight Insurance Includes: Active Insurance Policies Plan Name Member ID Group # Subscriber Relationship Effect valarie Dates 1 - [facility] [id number] Douglas Harrison Self 02/28/2022 - Unknown Clinical Notes Includes: Clinical Notes from this encounter * Progress note Date Encounter Last Documented by 11/24/2023 Follow Up Last documented on 11/24/2023; 3:47 PM, Jose Card MD; [facility] Active Problems & Conditions - Foot [...] Suspension 30 days, 0 refills - FreeStyle Laic 3 Sensor Miscellaneous 84 days, 0 refills [...] Care Team - PARVEZ MAYO MD - WIRELESS TECHNICIAN
[2024-06-11 11:35] LABS: FSH 5.3 mIU/mL (1.5-12.4); LH 4.5 mIU/mL (1.7-8.6); Prolactin 4.4 ng/mL (3.6-25.2)
== END 2024-06-09 23:59 | disposition home or self-care (01) ==
LOC: LAB 09:18
PROVIDERS: PCP Family Medicine; Visit Provider Student in an Organized Health Care Education/Training Program
DX: E29.1 Testicular hypofunction (principal)
CPT/HCPCS: 36415; 83001; 83002; 84146